=== PATIENT | male | born 1955 | race Caucasian/White ===

== ENCOUNTER → 2017-05-08 | Outpatient (CLI) | payer MEDICARE ==
[2017-05-08 09:08] LABS: ALT 30 U/L (21-72); Cholesterol 157 mg/dL (<200); HDL Cholesterol 36 mg/dL (40-60); Triglycerides 103 mg/dL (<150)
== END | disposition home or self-care (01) ==
LOC: LABWHC1 08:08
PROVIDERS: ATTEND Internal Medicine
DX: E78.4 Other hyperlipidemia (principal); R74.0 Nonspecific elevation of levels of transaminase and lactic acid dehydrogenase [LDH]
CPT/HCPCS: 36415; 80061; 84460

== ENCOUNTER → 2017-08-16 | Outpatient (CLI) | payer MEDICARE ==
[2017-08-16 10:39] LABS: Non-African American GFR(MDRD) >60 (>60 ml/min/1.73 sqM)
== END | disposition home or self-care (01) ==
LOC: LABWHC1 09:07
PROVIDERS: ATTEND Psychiatry & Neurology Neurology
DX: Z01.812 Encounter for preprocedural laboratory examination (principal); R41.82 Altered mental status, unspecified
CPT/HCPCS: 36415; 82565

== ENCOUNTER → 2017-08-19 | Outpatient (CLI) | payer MEDICARE ==
--- NOTE | 2017-08-19 22:23 | MR ---
EXAMINATION TYPE: MR brain wo/w con DATE OF EXAM: 08/19/2017 COMPARISON: MRI brain March 13, 2012 HISTORY: Memory loss, CVA TECHNIQUE: Multiplanar, multisequence images of the brain and brainstem is performed without and with IV contras t, utilizing 9 mL intravenous Gadavist . FINDINGS: Diffusion weighted images demonstrate no evidence of a recent infarct or other diffusion ab normality. There is no worrisome extra-axial fluid collection. The ventricular system and cisternal spaces are normal in size and appearance. The brain volume is age appropriate. There are few tiny s cattered foci of T2 hyperintensity seen throughout the white matter bilaterally, for reference for pu nctate lesions are seen on axial image 19 measuring 3 mm or smaller in size. Midline structures demonstrate normal morphology. The craniocervical junction appears within normal limits. Post contrast images demonstrate no abnormal enhancement. The dural venous sinuses appear pa tent. The visualized sinuses are clear and the globes are intact. IMPRESSION: No evidence of a recent infarct. Minimal nonspecific white matter changes otherwise unrem arkable study.
== END | disposition home or self-care (01) ==
LOC: RADMRIMAIN 15:46
PROVIDERS: ATTEND Psychiatry & Neurology Neurology
DX: R90.82 White matter disease, unspecified (principal); I63.9 Cerebral infarction, unspecified; G45.9 Transient cerebral ischemic attack, unspecified; C80.1 Malignant (primary) neoplasm, unspecified
CPT/HCPCS: 70553; A9581

== ENCOUNTER → 2017-11-06 | Outpatient (CLI) | payer MEDICARE | END | disposition home or self-care (01) | LOC: LABWHC1 07:37 | PROVIDERS: ATTEND Psychiatry & Neurology Neurology | DX: E78.5 Hyperlipidemia, unspecified (principal); M79.1 Myalgia; Z13.220 Encounter for screening for lipoid disorders; Z12.5 Encounter for screening for malignant neoplasm of prostate | CPT/HCPCS: 80061; 82550; 36415; G0103 ==

== ENCOUNTER → 2018-11-05 | Outpatient (CLI) | payer MEDICARE ==
[2018-11-05 08:57] LABS: HCT 50.4 % (39.0-53.0); HGB 16.5 gm/dL (13.0-17.5); MCH 30.4 pg (25.0-35.0); MCHC 32.8 g/dL (31.0-37.0); MCV 92.7 fL (80.0-100.0); Mean Platelet Volume 6.6; Platelet Count 232 k/uL (150-450); RBC 5.44 m/uL (4.30-5.90); RDW 13.3 % (11.5-15.5); WBC 6.3 k/uL (3.8-10.6)
[2018-11-05 16:35] LABS: Albumin 4.2 g/dL (3.80-4.90); Anion Gap 6.4 mmol/L (4.00-12.00); Carbon Dioxide 29.6 mmol/L (21.6-31.8); Globulin 2.1 g/dL (2.1-3.7); Total Bilirubin 0.5 mg/dL (0.2-1.2); Total Protein 6.3 g/dL (6.2-8.2)
== END | disposition home or self-care (01) ==
LOC: LABWHC1 07:51
PROVIDERS: ATTEND Psychiatry & Neurology Neurology
DX: N40.0 Benign prostatic hyperplasia without lower urinary tract symptoms (principal); E78.41 Elevated Lipoprotein(a); G62.9 Polyneuropathy, unspecified; E87.8 Other disorders of electrolyte and fluid balance, not elsewhere classified; R53.83 Other fatigue; M60.9 Myositis, unspecified
CPT/HCPCS: 36415; 80053; 80061; 82550; 84153; 85027

== ENCOUNTER 2019-10-21 09:14 | Day surgery (SDC) | payer MEDICARE ==
[2019-09-21 15:44] VITALS: BMI 29.3
[~2019-10-21 09:14] MED LIST: LACTATED RINGERS 1,000 ML IV SCH
[2019-10-21] MEDS ORDERED: LIDOCAINE 1% 20 ML VIAL (10MG/ML) FOR IV START INTRADERMA ONE (09:45)
[2019-10-21 09:49] VITALS: TEMP 97.6
[2019-10-21] MEDS ORDERED: PROPOFOL 10 MG/ML 20 ML VIAL IV ONE (09:53)
[2019-10-21] MEDS ORDERED: LIDOCAINE 1% INJ 10MG/ML (20 ML MDV) ONE (09:53)
--- NOTE | 2019-10-21 10:07 | P.PCN ---
Date of Procedure: 10/21/19 Procedure(s) Performed: BRIEF HISTORY: Patient is a 64-year-old, pleasant, white male, scheduled for an upper endoscopy for evaluation of intermittent dysphagia to solids for the last 10 years duration. Symptoms happen once a month or so and usually resolves. He denies any heartburn. He reports no odynophagia. He is scheduled for an upper endoscopy with possible dilation. PROCEDURE PERFORMED: Esophagogastroduodenoscopy with biopsy and dilation. PREOPERATIVE DIAGNOSIS: Intermittent dysphagia to solids. IV sedation per anesthesia. PROCEDURE: After informed consent was obtained, the patient was brought into the endoscopy unit. IV sedation was administered by Anesthesia under continuous monitoring. Initially the Olympus GIF-140 video endoscope was inserted into the mouth. Esophagus intubated without any difficulty. It was gradually advanced into the stomach and duodenum and carefully examined. The bulb and the second part of the duodenum appeared normal. The scope at this time was withdrawn to the stomach, adequately insufflated with air, and upon careful examination, mucosa of the antrum had mild gastritis. Also there was an area in the proximal antrum of the stomach which appeared somewhat scarred just over a previously healed antral ulcer. Biopsies were done from this area. The rest of the, body, cardia and the fundus appeared normal. The scope was then withdrawn into the esophagus. The GE junction was located at 43 cm from the incisors. There was a distal esophageal stricture identified at this time this was dilated using a 15 mm TTS balloon for total of 30 seconds. Following this there was brisk oozing identified at the site of dilation from mucosal tear and hence further dilation was not performed. The rest of the esophagus appeared normal. There were no erosions or ulcerations seen and the patient tolerated the procedure well. IMPRESSION: 1. Distal esophageal stricture status post balloon dilation using 15 mm TTS balloon as described above. 2. Scarring noted in the proximal antrum of the stomach suggestive of previously healed ulcer status post multiple biopsies. 3. Mild antral gastritis RECOMMENDATIONS: The findings of this examination were discussed with the patient as well as his family. He was advised to remain on a clear liquid diet for lunch. He will be started on Pepcid 20 mg twice daily for possible GERD causing esophageal stricture. He'll be seen in office in 3-4 months.
[2019-10-21] MEDS ORDERED: IV FLUID CONTINUATION 1,000 ML IV ONE (10:13)
[2019-10-21 10:29] VITALS: BP 125/77; PULSE 69; RESP 18
== END 2019-10-21 11:03 | disposition home or self-care (01) ==
LOC: ORWHC2ENDO 09:14
PROVIDERS: ATTEND Internal Medicine Gastroenterology
DX: K29.50 Unspecified chronic gastritis without bleeding (principal); K22.2 Esophageal obstruction; K31.89 Other diseases of stomach and duodenum; I10 Essential (primary) hypertension; E78.5 Hyperlipidemia, unspecified; Z88.2 Allergy status to sulfonamides; Z79.82 Long term (current) use of aspirin; Z79.899 Other long term (current) drug therapy; Z79.1 Long term (current) use of non-steroidal anti-inflammatories (NSAID); Z98.1 Arthrodesis status; Z98.890 Other specified postprocedural states; Z90.49 Acquired absence of other specified parts of digestive tract
CPT/HCPCS: 88305; 43239; 43249; J2001; J2704; C1726

== ENCOUNTER → 2020-06-30 | Outpatient (CLI) | payer MEDICARE ==
[2020-06-30 09:48] LABS: HCT 51.3 % (39.0-53.0); HGB 17.2 gm/dL (13.0-17.5); MCH 31.8 pg (25.0-35.0); MCHC 33.6 g/dL (31.0-37.0); MCV 94.8 fL (80.0-100.0); Mean Platelet Volume 7.3; Platelet Count 199 k/uL (150-450); RBC 5.41 m/uL (4.30-5.90); RDW 13.3 % (11.5-15.5); WBC 5.6 k/uL (3.8-10.6)
[2020-06-30 09:56] LABS: Appearance,Urine Clear (Clear); Bilirubin,Urine Negative (Negative); Blood,Urine Negative (Negative); Color,Urine Yellow; Glucose,Urine (UA) Negative (Negative); Hyaline Casts,Urine 1 /lpf (0-2); Ketones,Urine Negative (Negative); Leukocyte Esterase,Urine Trace (Negative); Mucus,Urine Occasional /hpf; Nitrite,Urine Negative (Negative); Protein,Urine Trace (Negative); RBC,Urine 1 /hpf (0-5); Specific Gravity,Urine 1.027 (1.001-1.035); WBC,Urine 1 /hpf (0-5)
[2020-06-30 16:46] LABS: African American GFR (CKD) 103.5 (60.0-200.0); Albumin 3.9 g/dL (3.80-4.90); Albumin/Globulin Ratio 1.7 (1.60-3.17); Anion Gap 7.7 mmol/L (4.00-12.00); Carbon Dioxide 27.3 mmol/L (21.6-31.8); Chol/HDL Ratio 5.31; Globulin 2.3 g/dL (1.6-3.3); Non-African American GFR(CKD) 89.3 (60.0-200.0); Potassium 3.6 mmol/L (3.5-5.5); Total Bilirubin 0.6 mg/dL (0.3-1.2); Total Protein 6.2 g/dL (6.2-8.2)
== END | disposition home or self-care (01) ==
LOC: LABWHC1 08:48
PROVIDERS: ATTEND Family Medicine
DX: Z00.00 Encounter for general adult medical examination without abnormal findings (principal); Z12.5 Encounter for screening for malignant neoplasm of prostate; E78.5 Hyperlipidemia, unspecified; Z79.899 Other long term (current) drug therapy; R53.83 Other fatigue; I10 Essential (primary) hypertension
CPT/HCPCS: 36415; 80053; 80061; 81001; 82550; 83735; 84443; 85027

== ENCOUNTER → 2020-08-24 | Outpatient (CLI) | payer MEDICARE, OTHER ==
--- NOTE | 2020-08-24 13:09 | CONS ---
CONSULTATION DATE OF SERVICE: 08/24/2020 HISTORY OF PRESENT ILLNESS: A 65-year-old gentleman who has been evaluated in the Sleep Center for possible obstructive sleep apnea-hypopnea syndrome. HISTORY OF PRESENT ILLNESS/SLEEP WAKE EVALUATION: Patient usual sleep schedule from 11 p.m. to 6 to 7 am, usually no problems with falling asleep, although he has TV set in bedroom. He sleeps on the back and side position. According to his , he snores and has episodes of stopped breathing during sleep. He wakes up from sleep with a dry mouth, nocturia 2 times. During the day, he has difficulties paying attention and problems with concentration. [place] Sleepiness Scale is 5. PAST MEDICAL HISTORY: Positive for hypertension, hyperlipidemia, neck and shoulder problems. PAST SURGICAL HISTORY: Cervical fusion, shoulder surgery, hernia repair, appendectomy. MEDICATIONS: Duloxetine 60 mg once a day, hydrochlorothiazide 25 mg once a day, baby aspirin, atorvastatin 40 mg once a day, Naproxen 500 mg on p.r.n. basis, Baclofen 20 mg once a day. SOCIAL HISTORY: Positive for smoking for about 30 pack years, quit in 2010, alcohol consumption rarely. FAMILY HISTORY: Positive for heart problems and hypertension by his father. REVIEW OF SYSTEMS: Multiple awakenings from sleep, episodes of sleepiness during the day. May take naps at 2 pm. No history of hypnagogic hallucinations, sleep paralysis or cataplexy. PHYSICAL EXAM: A gentleman without distress, BP 143/80, HR 68, RR 16, height 5, 8, weight 197, BMI 29.9, temperature 98.3, oxygen saturation at room air 97%. OROPHARYNX: Extremely low position of soft palate. Mallampati 4. ABDOMEN: lightly obese. NECK: Supple, no JVD. Thyroid is not palpable. LUNGS: Clear to percussion and to auscultation. Good air exchange. No wheezing or rhonchi. HEART: S1, S2 regular. No murmurs, gallops, or rubs. EXTREMITIES: No clubbing or cyanosis. RN CCU: Awake, alert, and oriented X3. Cranial nerves 2 to 7 intact. There is no fasciculation or atrophy. noted. No focal deficits observed. IMPRESSION: 1. Snoring, witnessed episodes of stopped breathing during the sleep, extremely low position of soft palate, obstructive sleep apnea-hypopnea syndrome. 2. Hypertension. 3. Hyperlipidemia. 4. History of neck problems, status post cervical fusion. 5. Status post shoulder surgery. 6. Status post hernia repair. 7. Status post appendectomy. PLAN: 1. Polysomnography for evaluation of patient's breathing during sleep. 2. CPAP/BiPAP titration if sleep study confirms obstructive sleep apnea-hypopnea syndrome. 3. Preferable position during sleep on the side. 4. No driving if patient feels any sleepiness. 5. I will see patient for follow up visit to explain results of testing and following plan. Thank you very much for allowing me to participate in the management of your patient. Sincerely, Castro Norris MD, PhD, FAASM Diplomat of [employer] [employer] [employer] Principal Librarian of [facility] MMODL / CAROLINAN: [id number] /
== END | disposition home or self-care (01) ==
LOC: SLEEP 11:27
PROVIDERS: ATTEND Internal Medicine
DX: G47.33 Obstructive sleep apnea (adult) (pediatric) (principal); I10 Essential (primary) hypertension; E78.5 Hyperlipidemia, unspecified; Z98.1 Arthrodesis status; Z90.49 Acquired absence of other specified parts of digestive tract; Z79.899 Other long term (current) drug therapy; Z79.1 Long term (current) use of non-steroidal anti-inflammatories (NSAID); Z79.82 Long term (current) use of aspirin
CPT/HCPCS: 99211

== ENCOUNTER → 2021-02-07 | Outpatient (CLI) | payer MEDICARE, OTHER ==
--- NOTE | 2021-02-07 22:31 | SFUN ---
SLEEP CENTER FOLLOW UP NOTE DATE OF SERVICE: 02/07/2021 This 65-year-old gentleman has been followed in Sleep Center for treatment of obstructive sleep apnea-hypopnea syndrome. Recently the patient had a polysomnogram which showed moderate, close to severe obstructive sleep apnea-hypopnea syndrome. Then the patient had CPAP titration and received a CPAP unit. Today is his first visit since he started to use CPAP equipment. His thinks that he sleeps better with the CPAP, but he does have some problems with the mask. It is a full-face mask and sometimes he does not feel comfortable with the mask during the night and takes it off. [place] Sleepiness Scale today is 7. I checked his CPAP unit. Range of the pressure is 5-12, usage 29/30 nights, which is good compliance, but only 6/30 nights for more than 4 hours. Average usage 2.9 hours per night. Leak is 20 L/minute, which is borderline. Apnea-hypopnea index 10.1, which is slightly increased. MEDICATIONS: 1. Duloxetine 60 mg once a day. 2. Hydrochlorothiazide 25 mg once a day. 3. Baby aspirin. 4. Atorvastatin 40 mg once a day. 5. Naproxen 500 mg on a p.r.n. basis. 6. Baclofen 20 mg once a day. PHYSICAL EXAMINATION: GENERAL: A pleasant patient in no distress. VITAL SIGNS: BP 148/78, HR 82, RR 15, oxygen saturation at room air 95%. Weight 201 pounds. Temperature 97.9. HEENT: PERRLA, EOMI. Evaluation of oropharynx showed tongue protrudes midline. Extremely low position of soft palate. Mallampati IV. NECK: Supple. No JVD. Thyroid is not palpable. LUNGS: Clear to percussion and to auscultation. Good air exchange. No wheezing or rhonchi. HEART: S1, S2 regular. No murmurs, gallops or rubs. ABDOMEN: Slightly obese. EXTREMITIES: No clubbing or cyanosis. TOOLROOM MACHINIST: Awake, alert, and oriented X3. Cranial nerves 2 to 7 intact. There is no fasciculation or atrophy. noted. No focal deficits observed. IMPRESSION: 1. Moderate, close to severe obstructive sleep apnea-hypopnea syndrome; apnea-hypopnea index 27.1. The patient is using CPAP equipment every night; some nights not for the whole night, benefitting from treatment. 2. Obesity. 3. Hypertension. 4. Hyperlipidemia. 5. History of neck problems. 6. Status post neck fusion. 7. Status post shoulder surgery. 8. Status post hernia repair. PLAN: 1. We will treat the patient with a different style of full-face mask, possibly DreamWear which goes under the nose, and consequently there will be no leak to the eye area. 2. Patient will continue to use PAP equipment every night for the whole night. 3. Sleep hygiene with regular time in bed for at least 7-1/2 to 8 hours. 4. Precautions related to driving. No driving if feeling sleepiness. 5. I will maintain all necessary prescription for PAP supplies including mask, tube, filters. 6. Watching weight. Thank you very much for allowing me to participate in the management of your patient. Sincerely, Castro Norris MD, PhD, FAASM Diplomat of [employer] [employer] [employer] Churn Operator [facility] MMODL / IJN: [id number] /
== END ==
LOC: SLEEP 16:03
PROVIDERS: ATTEND Internal Medicine
DX: G47.33 Obstructive sleep apnea (adult) (pediatric) (principal); E66.9 Obesity, unspecified; I10 Essential (primary) hypertension; E78.5 Hyperlipidemia, unspecified; Z99.89 Dependence on other enabling machines and devices; Z98.1 Arthrodesis status; Z98.890 Other specified postprocedural states

== ENCOUNTER → 2021-04-26 | Outpatient (CLI) | payer MEDICARE, OTHER ==
--- NOTE | 2021-04-26 09:30 | CTL ---
EXAMINATION TYPE: CT Low Dose Lung DATE OF EXAM ORDERED: 04/26/2021 HISTORY: Long-term tobacco use. Lung cancer screening CT DLP: 75.[address] CTDI: 2.29 mGy Automated exposure control for dose reduction was used. SCREENING VISIT: Initial study COMPARISON: None TECHNIQUE: Low dose computed tomography scan was performed through the chest at 1 mm thick sections a nd reconstructed images in the coronal plane at [address] DIAGNOSTIC QUALITY: Limited, but interpretable Due to body habitus. FINDINGS: LUNG NODULES: Present, detailed below: Scattered calcified nodules are benign granulomas all measuring under 5 mm in size. No greater than 5 mm noncalcified pulmonary nodules. LUNGS: COPD: Severity: Mild Fibrosis: Severity: None. Lymph nodes: None. Other findings: None RIGHT PLEURAL SPACE: Effusion: None Calcification: None Thickening: None Pneumothorax: None LEFT PLEURAL SPACE: Effusion: None Calcification: None Thickening: None Pneumothorax: None HEART: Heart Size: Normal Coronary calcification: Moderate to severe three-vessel Pericardial effusion: None OTHER FINDINGS: Upper abdomen: None. Bony thorax: Mild multilevel spurring. Anterior fusion plate in the cervical spine noted on localizer . Surgical change right shoulder involving scapula partially visualized on localizer. Supraclavicular region: None. Other: None. IMPRESSION: No concerning greater than 5 mm noncalcified pulmonary nodules. CT LUNG RAD AND CT CHEST RECOMMENDATION: Lung-Rad 2 Benign Appearance or Behavior: Continue annual sc reening with LDCT in 12 months. S Modifier (other clinically significant findings): S Moderate to severe three-vessel coronary artery calcification should be correlated with additional ca rdiac risk factors.
== END | disposition home or self-care (01) ==
LOC: RADCTMAIN 08:29
PROVIDERS: ATTEND Family Medicine
DX: Z12.2 Encounter for screening for malignant neoplasm of respiratory organs (principal); R91.8 Other nonspecific abnormal finding of lung field; I25.10 Atherosclerotic heart disease of native coronary artery without angina pectoris; Z87.891 Personal history of nicotine dependence
CPT/HCPCS: 71271

== ENCOUNTER → 2021-05-18 | Outpatient (CLI) | payer MEDICARE ==
--- NOTE | 2021-05-18 13:31 | US ---
EXAMINATION TYPE: US duplex aorta DATE OF EXAM: 05/18/2021 COMPARISON: NONE CLINICAL HISTORY: Z13.6 AAA screening. Smoker with no abdomen symptoms EXAM MEASUREMENTS: Abdominal Aorta: Proximal: 2.3cm Mid: 2.0 x 2.4cm Distal: 1.3 x 1.6cm Bifurcation: not seen not seen Aortic Bifurcation gassed out IMPRESSION: 1. Aortic bifurcation is not visualized due to overlying bowel gas. No definite evidence of abdominal aortic aneurysm at the visualized portions.
== END | disposition home or self-care (01) ==
LOC: RADUSWWP 09:16
PROVIDERS: ATTEND Family Medicine
DX: Z13.6 Encounter for screening for cardiovascular disorders (principal); F17.200 Nicotine dependence, unspecified, uncomplicated
CPT/HCPCS: 93979

== ENCOUNTER → 2021-06-08 | Outpatient (CLI) | payer MEDICARE | END | disposition home or self-care (01) | LOC: LABWHC1 12:31 | PROVIDERS: ATTEND Family Medicine | DX: Z01.812 Encounter for preprocedural laboratory examination (principal) | CPT/HCPCS: 87070 ==

== ENCOUNTER → 2021-06-18 | Outpatient (CLI) | payer MEDICARE | END | disposition home or self-care (01) | LOC: LABPAT 15:54 | PROVIDERS: ATTEND Orthopaedic Surgery | DX: Z01.812 Encounter for preprocedural laboratory examination (principal); M16.11 Unilateral primary osteoarthritis, right hip | CPT/HCPCS: 85730 ==

== ENCOUNTER → 2021-06-20 | Outpatient (CLI) | payer MEDICARE ==
[2021-06-20 14:00] LABS: HGB 17.7 gm/dL (13.0-17.5); MCH 32.2 pg (25.0-35.0); MCHC 34.8 g/dL (31.0-37.0); MCV 92.6 fL (80.0-100.0); Mean Platelet Volume 7.1; Platelet Count 268 k/uL (150-450); RBC 5.51 m/uL (4.30-5.90); RDW 12.9 % (11.5-15.5); WBC 7.5 k/uL (3.8-10.6)
[2021-06-20 14:18] LABS: African American GFR (CKD) >90 (>60 ml/min/1.73 sqM); Anion Gap 11 mmol/L; Blood Urea Nitrogen 19 mg/dL (9-20); Carbon Dioxide 28 mmol/L (22-30); Chloride 98 mmol/L (98-107); Non-African American GFR(CKD) 86 (>60 ml/min/1.73 sqM); Potassium 3.9 mmol/L (3.5-5.1); Sodium 137 mmol/L (137-145)
== END | disposition home or self-care (01) ==
LOC: LABPAT 12:39
PROVIDERS: ATTEND Internal Medicine Interventional Cardiology
DX: Z01.812 Encounter for preprocedural laboratory examination (principal); R94.39 Abnormal result of other cardiovascular function study
CPT/HCPCS: 36415; 80051; 82565; 84520; 85027

== ENCOUNTER 2021-06-21 05:48 | Day surgery (SDC) | payer MEDICARE ==
[2021-06-20 10:31] VITALS: BMI 29.7
[2021-06-21] MEDS ORDERED: NITROGLYCERIN SL TABS 0.4 MG TAB SUBLINGUAL PRN (05:57)
[2021-06-21] MEDS ORDERED: ALPRAZolam 0.25 MG TAB PO PRN (05:57)
[2021-06-21] MEDS ORDERED: ALPRAZolam 0.5 MG TAB PO PRN (05:57)
[2021-06-21] MEDS ORDERED: SODIUM CHLORIDE 0.9% 1,000 ML in EMPTY BAG 1 BAG IV ONE (05:57)
[2021-06-21 06:32] VITALS: RESP 18; TEMP 98.3
[2021-06-21] MEDS ORDERED: ASPIRIN 325 MG TAB PO ONE (07:00)
[2021-06-21] MEDS ORDERED: ATORVASTATIN 80 MG TAB PO ONE (07:00)
[2021-06-21] MEDS ORDERED: HEPARIN SODIUM,PORCINE 2,500 UNIT in SODIUM CHLORIDE 0.9% 250 ML IRRIGATION PRN (07:00)
[2021-06-21] MEDS ORDERED: HEPARIN SODIUM,PORCINE 10,000 UNIT in SODIUM CHLORIDE 0.9% 1,000 ML IRRIGATION PRN (07:00)
[2021-06-21] MEDS ORDERED: VERAPAMIL 2.5 MG/ML 2 ML AMP ONE (07:06)
[2021-06-21] MEDS ORDERED: LIDOCAINE 1% INJ 10MG/ML (20 ML MDV) ONE (07:06)
[2021-06-21] MEDS ORDERED: HEPARIN SODIUM 1,000 UN/ML (10ML VL) ONE (07:14)
[2021-06-21] MEDS ORDERED: MIDAZOLAM 2 MG/2 ML VIAL IV ONE ×2 (07:21)
[2021-06-21] MEDS ORDERED: LIDOCAINE 1% INJ 10MG/ML (20 ML MDV) SQ ONE (07:22)
[2021-06-21] MEDS ORDERED: HEPARIN SODIUM 1,000 UN/ML (10ML VL) IV ONE (07:25)
[2021-06-21] MEDS ORDERED: VERAPAMIL SYRINGE (5 MG/10 ML) INTRAARTER ONE (07:25)
[2021-06-21] MEDS ORDERED: IOPAMIDOL-370 100ML BTL INJ ONE (07:39)
--- NOTE | 2021-06-21 09:14 | CC ---
CARDIAC CATHETERIZATION REPORT DATE OF SERVICE: 06/21/2021 PROCEDURE: Left heart catheterization and coronary angiography. PERFORMED BY: Dr. Sally Falcon. Moderate conscious sedation time was 19 minutes. Patient was administered Versed. Oxygen saturation, hemodynamics and EKG were monitored closely. CLINICAL INFORMATION: Mr. Nadeem Mckee is a 65-year-old gentleman with a history of hypertension, hyperlipidemia, and a positive stress test with inferolateral reversible defect. He was going for elective hip operation and he also had calcified coronary arteries. He was advised cardiac cath in view of symptoms risk factors and a positive stress test. PROCEDURE NOTE: Under local anesthesia and strict aseptic precautions, a 6-Vietnamese introducer was placed in the right radial artery. Using a JL3.5 and JR4 catheters, I performed coronary angiography and the same right catheter was used to check LV pressure but LV gram was not performed. CARDIAC CATHETERIZATION FINDINGS: Left ventricular end-diastolic pressure was about 7 mmHg without any gradient across aortic valve. CORONARY ANGIOGRAPHY FINDINGS: RIGHT CORONARY ARTERY: Technically a dominant vessel, moderate to heavy calcification, has a 35% mid lesion. Distally bifurcates into PDA and PLV, both of which supply a sizable amount of myocardium. No significant disease. The RCA therefore is dominant, has no significant disease. There is moderate calcification with lesions of up to 35%. LEFT MAIN CORONARY ARTERY: Short patent vessel that bifurcates into LAD and circumflex. The left main itself is free of significant disease, has mild to moderate calcification. LEFT ANTERIOR DESCENDING CORONARY ARTERY: Good caliber vessel, extends along the anterior wall, gives off septal and diagonal branches. There are 2 diagonal branches, 1 proximally, 1 in the midportion. Before the second diagonal branch, there is a 40% stenosis in the LAD with good flow. Beyond that, caliber improves. It runs all the way to the apex supplying the anteroapical portion of left ventricle. The LAD therefore has a 40% mid lesion just before the origin of the second diagonal branch. Moderate calcification, but no critical stenosis. LEFT POSTERIOR CIRCUMFLEX CORONARY ARTERY: Technically a nondominant vessel, gives off a high first obtuse marginal that is free of significant disease and small in caliber. The second obtuse marginal is larger in caliber, but totally occluded, seen as a stump with late filling distally. The circumflex then continues in the AV groove and gives off a distal posterolateral branch which has mild diffuse disease. The circumflex marginal, the 2nd OM, which is fairly large, is totally occluded and fills by some left- to-left collaterals. This is the culprit area of ischemia on the stress test. Left ventriculogram was not performed. FINAL IMPRESSION: This patient has a significant single-vessel disease, significant calcification of all 3 vessels, normal filling pressures. No gradient. Although I did not perform an echocardiogram, ejection fraction by echo is 55% without any significant valvular disease. He has a right dominant system, total occlusion of circumflex marginal, moderate calcification all 3 vessels with mid LAD, 40%, mid RCA, 35%. RECOMMENDATIONS: I am recommending that we will pursue aggressive medical therapy with risk factor modification. I will increase beta ministerio, metoprolol tartrate 25 mg b.i.d., aspirin 81 mg daily, Lipitor 80 mg daily and decrease hydrochlorothiazide to 12.5 mg daily. The patient can go ahead with his right hip arthroplasty scheduled for June [address] Bryce Mcallister. Risk is moderate to high, but no contraindication. I am recommending cautious fluid administration and optimal BP control perioperatively and to resume all his medications including beta blockers after the surgery. Details were discussed with the patient and his and I also spoke to Dr. Mcallister. This note should serve as a clearance for his noncardiac surgery. MMODL / IJN: [id number] /
[2021-06-21 12:44] VITALS: BP 127/64; PULSE 74
== END 2021-06-21 12:35 | disposition home or self-care (01) ==
LOC: CATHCVL 05:48
PROVIDERS: ATTEND Internal Medicine Interventional Cardiology
DX: I25.10 Atherosclerotic heart disease of native coronary artery without angina pectoris (principal); I25.82 Chronic total occlusion of coronary artery; I10 Essential (primary) hypertension; E78.5 Hyperlipidemia, unspecified; Z79.82 Long term (current) use of aspirin
CPT/HCPCS: 93458; C1894; J2250; J2001; J1644; Q9967

== ENCOUNTER 2021-06-26 09:56 | Day surgery (SDC) | payer MEDICARE ==
[2021-06-21 17:02] VITALS: BMI 29.5
[~2021-06-26 09:56] MED LIST changes: +ACETAMINOPHEN TAB 500 MG TAB PO PRN; +DEXAMETHASONE SOD PHOSPHATE 4 MG/ML 1 ML VIAL IV ONE; +GABAPENTIN 300 MG CAP PO PRN; +HYDROmorphone 0.5 MG/0.5 ML SYRINGE IVP PRN; +LIDOCAINE 1% (10MG/ML) FOR IV START INTRADERMA PRN; +MELOXICAM 7.5 MG TAB PO PRN; +ONDANSETRON 4 MG/2 ML VIAL IVP PRN; +TRANEXAMIC ACID 1,000 MG in SODIUM CHLORIDE 0.9% 100 ML IVPB PRN
[2021-06-26] MEDS: LACTATED RINGERS 1,000 ML IV SCH ×3 (10:51→14:52)
[2021-06-26] MEDS ORDERED: ceFAZolin 1,000 MG in SODIUM CHLORIDE 0.9% 1,000 ML IRRIGATION ONE (11:54)
[2021-06-26] MEDS: ROPIVACAINE/EPI/CLONIDINE/KET 50 ML SYRINGE MISCELLANE PRN ×2 (12:18→12:56)
--- NOTE | 2021-06-26 13:04 | P.OP ---
Date of Procedure: 06/26/21 Preoperative Diagnosis: Severe osteoarthritis right hip Postoperative Diagnosis: Severe osteoarthritis right hip Procedure(s) Performed: Right total hip arthroplasty with a direct anterior approach Implants: [employer] Polarstem standard size 4 [employer] R3, 3 hole hemispherical acetabular shell, 52 mm [employer] Reflection 6.5 mm cancellus screw, 20 mm, 25 mm [employer] R3, XLPE 20 acetabular liner [employer] Oxinium femoral head 36 m, +4 All components were press-fit. The articulation is Oxinium on polyethylene. Anesthesia: GETA Surgeon: Bryce Mcallister Director Of Catering Sales #1: Marjorie Emerson Estimated Blood Loss (ml): 100 Pathology: other (Femoral head) Condition: stable Disposition: PACU Indications for Procedure: After failure of conservative treatment we discussed the surgical and nonsurg ical treatment options at length. Patient wishes to proceed with a total hip arthroplasty with a direct anterior approach. Complications specific to this procedure were discussed at length, including but not limited to infection, leg length discrepancy, dislocation, nerve injury, and fracture. Covid-19 was also discussed at length with the patient, and they are aware of the current policies and procedures. The patient was given the option of delaying surgery, but they elect to proceed knowing these risks. Patient is aware of all these complications and informed consent was obtained Operative Findings: The operative findings are consistent with severe osteoarthritis of the right hip Description of Procedure: Patient was seen and evaluated in the preoperative area and the consent was reviewed. The operative site was marked with a skin marker. The patient was then brought to the operating room and given preoperative antibiotics intravenously. 1 g of Tranexamic acid was also given intravenously. A general anesthetic was administered by the anesthesia department. The patient was then placed on the [place] table with the bony prominences well-padded. The hip area was then prepped with a ChloraPrep solution and draped in the usual sterile fashion. A universal timeout was then performed, which confirmed the patient's name, surgical site, ALLERGIES, and procedure being performed on the consent. Next the incision site was located at 1 cm distal to the anterior superior iliac spine along the flexion crease of the hip. The skin and subcutaneous tissues were sharply incised. Incision was carefully dissected down to the fascia overlying the tensor fascia elvis muscle. This fascia was then incised in line with the incision. Care was taken to stay laterally in order to avoid injuring the lateral femoral cutaneous nerve. Next, using blunt finger dissection, the tensor fascia elvis muscle was dissected off its investing fascia. The muscle was then carefully retracted laterally with a cobra retractor over the lateral neck of the femur. Next, the circumflex vessels were identified and cauterized using the AquaMantis device. The anterior hip capsule was then exposed. The capsule was then opened and an inverted T fashion. Cobra retractors were then placed intracapsularly. The retractors were maintained intracapsular throughout the procedure. The proximal femur was then visualized. A small amount of traction was placed on the leg. The femoral neck was then osteotomized appropriate level above the lesser trochanter. A small wedge of bone was then removed from the remaining femoral head. Next, using a corkscrew the femoral head was removed from the acetabulum. On gross visual inspection, the femoral head had complete loss of articular cartilage and multiple periarticular osteophytes. The femoral head was then measured. Attention was then turned to the acetabulum. The acetabulum was exposed and any remaining labrum was excised. Sequential reaming of the acetabulum was performed using fluoroscopic guidance until there was a good bed of bleeding cancellus bone. When the appropriate size was reached, a trial was then placed. The position and fit of the trial was checked with fluoroscopy. The trial was then removed. Then, using fluoroscopic guidance, the final implant was impacted at 20 of anteversion and 40 of abduction, and fully seated in the acetabulum. 2 screws were then placed in the acetabulum. Again fluoroscopy was used to check position of the screws. Next, the liner was then impacted, with a 20 elevated liner located in the anterior superior quadrant. Component locking was confirmed. Attention was then directed to the femur. With the aid of the [place] table, the femur was externally rotated to approximately 130, extended, and adducted under the opposite leg. A side hook was then placed under the proximal femur, and the side hook elevator was used to elevate the proximal femur while releasing the capsule. Retractors were then placed. A capsular release was performed, as well as a release of the conjoined tendon, which afforded excellent visua lization of the proximal femur. Next, a box osteotome was used to lateralize the proximal femur. A shoe handler was then used to locate the femoral canal. Sequential broaching was then performed with appropriate size which afforded excellent fixation in the proximal femur. A trial was then placed with appropriate head and neck, and the hip was gently reduced with the aid of the [place] table. Fluoroscopy was then used to check position of the components, as well as to ensure equal leg lengths. The hip was then gently dislocated and the trials were then removed. Final implants were then impacted and the hip was again reduced. Final fluoroscopic x-rays confirmed that the components were in anatomic position, as well as equal leg lengths. The hip was also taken through range of motion, and found to be stable. The hip was then copiously irrigated with antibiotic solution with pulsatile lavage. The hip was then irrigated with Irrisept solution. The soft tissues were then injected with a ropivacaine solution, which consisted of 246.25 mg of ropivacaine, 0.5 mg of epinephrine, 30 mg of Toradol, 80 g of clonidine, and 48.45 mL of sterile water, for a total of 100 mL of fluid injected. A second dose of 1 g of Tranexamic acid was also given intravenously. Any blood collected by Cell Saver was then returned to the patient at this time. The fascia was then closed with 2-0 strata fix suture. The subcutaneous tissue was closed with 3-0 Vicryl. The subcuticular tissue was closed with 3-0 strata fix suture. The skin was then closed with Exofin skin glue. After the glue and dried, and Optifoam silver impregnated dressing was applied. The patient was then transferred to the recovery room in stable condition. The customer assistant GEMINI Moore was required due to the complexity of surgery, and the need for skilled surgical elastic knitter for positioning, draping, exposure, retraction, and closure of the wound.
[2021-06-26] MEDS ORDERED: HYDROmorphone 0.5 MG/0.5 ML SYRINGE IVP PRN ×2 (13:29)
[2021-06-26] MEDS ORDERED: NALOXONE 0.4 MG/ML 1 ML VIAL IV PRN (13:29)
[2021-06-26] MEDS ORDERED: HYDROmorphone 0.2 MG/1 ML SYRINGE IVP PRN (13:29)
[2021-06-26] MEDS ORDERED: SODIUM CHLORIDE 0.9% 1,000 ML IV SCH (13:30)
[2021-06-26] MEDS ORDERED: HYDROcodone/APAP 7.5-325MG 1 EACH TAB PO PRN ×2 (13:32)
[2021-06-26 13:35] VITALS: TEMP 97
[2021-06-26] MEDS ORDERED: ONDANSETRON 4 MG/2 ML VIAL IVP ONE ×2 (14:45→16:35)
[2021-06-26] MEDS ORDERED: LACTATED RINGERS 1,000 ML IV ONE ×2 (14:55)
--- NOTE | 2021-06-26 15:11 | XR ---
Limited right hip HISTORY: Status post right hip arthroplasty Single frontal view of the right hip Patient is status post right hip arthroplasty, there is anatomic alignment. There is lucency in the s oft tissues. IMPRESSION: Orthopedic follow-up.
[2021-06-26 16:19] VITALS: PULSE 85
[2021-06-26] MEDS ORDERED: ONDANSETRON 4 MG/2 ML VIAL ONE (16:35)
[2021-06-26 16:44] VITALS: BP 133/75; RESP 18
--- NOTE | 2021-06-26 17:26 | FL ---
Fluoroscopy and limited right hip HISTORY: Hip replacement 18 seconds fluoroscopy time supplied to the referring clinician. 2 intraoperative C-arm images docum ent the procedure. See dictated report from orthopedic surgery.
== END 2021-06-26 17:39 | disposition home or self-care (01) ==
LOC: OR 09:56
PROVIDERS: ATTEND Orthopaedic Surgery
DX: M16.11 Unilateral primary osteoarthritis, right hip (principal); I10 Essential (primary) hypertension; G47.33 Obstructive sleep apnea (adult) (pediatric); E78.5 Hyperlipidemia, unspecified; Z79.82 Long term (current) use of aspirin
CPT/HCPCS: 27130; 97162; 86891; 86900; 86901; 86850; 88300; 73501; 36415; C1776; J1100; J0690 ×2; J2405

== ENCOUNTER 2022-05-15 06:32 | Day surgery (SDC) | payer MEDICARE, OTHER ==
[2022-05-14 10:34] VITALS: BMI 31.3
[~2022-05-15 06:32] MED LIST changes: -ACETAMINOPHEN TAB 500 MG TAB PO PRN; -DEXAMETHASONE SOD PHOSPHATE 4 MG/ML 1 ML VIAL IV ONE; -GABAPENTIN 300 MG CAP PO PRN; -HYDROmorphone 0.5 MG/0.5 ML SYRINGE IVP PRN; -LACTATED RINGERS 1,000 ML IV SCH; -MELOXICAM 7.5 MG TAB PO PRN; -ONDANSETRON 4 MG/2 ML VIAL IVP PRN; -TRANEXAMIC ACID 1,000 MG in SODIUM CHLORIDE 0.9% 100 ML IVPB PRN
[2022-05-15 06:53] VITALS: TEMP 97
[2022-05-15] MEDS: LACTATED RINGERS 1,000 ML IV SCH ×2 (07:01→07:18)
[2022-05-15] MEDS ORDERED: LIDOCAINE 2% INJ 20 MG/ML (2 ML VIAL) ONE (07:20)
[2022-05-15] MEDS ORDERED: PROPOFOL 10 MG/ML 20 ML VIAL IV ONE (07:20)
--- NOTE | 2022-05-15 07:54 | P.PCN ---
Date of Procedure: 05/15/22 Procedure(s) Performed: Brief history: Patient is a pleasant 66-year-old white male scheduled for an elective upper endoscopy as well as colonoscopy as a part of evaluation of intermittent dysphagia to solids for the last 5 days duration. He scheduled for an upper endoscopy with possible dilation. Scheduled for colonoscopy as a part of screening for colorectal neoplasia Procedure performed: Esophagogastroduodenoscopy biopsy and dilation Colonoscopy Preoperative diagnosis: Intermittent dysphagia to solids Screening for colon cancer Anesthesia: MAC Procedure: After informed consent was obtained from the patient was brought into the endoscopy unit and IV sedation was administered by anesthesia under continuous monitoring. Initially upper endoscopy was done. The Olympus GF 160 video endoscope was inserted inserted into the mouth and esophagus intubated without any difficulty and was gradually advanced into the stomach and duodenum and carefully examined. The bulb and second part of the duodenum appeared normal. The scope was then withdrawn into the stomach adequately insufflated with air and upon careful examination the antrum mild gastritis and biopsies were done from this area. The body, cardia and fundus appeared normal. The scope was then withdrawn into the esophagus. The GE junction was located at 40 cm to the incisors. It appeared regular with no erythema erosions or ulcerations. There was distal esophageal stricture/Schatzki's ring noted at 38 and 40 cm from the incisors and this was dilated using 15 and 16-1/2 mm TTS balloon in a sequential fashion for 30 seconds. Rest of the esophagus appeared normal. Patient tolerated the procedure well. At this time the patient continued to remain sedation. Initial digital rectal examination was normal. Olympus CF 160 video colonoscope was then inserted into the rectum and gradually advanced to the cecum without any difficulty. Careful examination was performed as the scope was gradually being withdrawn. The prep was excellent. The cecum, ascending colon, transverse colon, descending colon, sigmoid colon and rectum appeared normal. Retroflexion was performed in the rectum and no lesions were noted. Patient tolerated the procedure well. Impression: 1. Upper endoscopy revealed distal esophageal stricture/Schatzki's ring was balloon dilation using 10-16.5 mm TTS balloon as described and antral gastritis: Colonoscopy revealed scattered diverticulosis but no evidence of colorectal neoplasia 2. Recommendations: Findings of this examination were discussed with the patient as well as his family. He was advised to remain on a clear liquid diet for breakfast today. Continue with current medications and follow antireflux measures. Recommend repeat screening colonoscopy in 10 years.
[2022-05-15 08:17] VITALS: RESP 18
[2022-05-15 08:30] VITALS: BP 133/81; PULSE 59
== END 2022-05-15 09:05 ==
LOC: ORWHC2ENDO 06:32
PROVIDERS: ATTEND Internal Medicine Gastroenterology
DX: K22.2 Esophageal obstruction (principal); K57.30 Diverticulosis of large intestine without perforation or abscess without bleeding; K29.50 Unspecified chronic gastritis without bleeding; I10 Essential (primary) hypertension; E78.5 Hyperlipidemia, unspecified; K21.9 Gastro-esophageal reflux disease without esophagitis; Z88.2 Allergy status to sulfonamides; Z79.899 Other long term (current) drug therapy; Z79.82 Long term (current) use of aspirin; Z79.891 Long term (current) use of opiate analgesic
CPT/HCPCS: 88305; 43239; 43249; J2704; J2001; C1726; G0121

== ENCOUNTER → 2022-07-02 | Outpatient (CLI) | payer MEDICARE, OTHER ==
--- NOTE | 2022-07-02 11:29 | US ---
EXAMINATION TYPE: US kidneys/renal and bladder DATE OF EXAM: 07/02/2022 COMPARISON: NONE CLINICAL HISTORY: R80.9 PROTEIN IN URINE. EXAM MEASUREMENTS: Right Kidney: 11.3 x 4.8 x 4.5cm Left Kidney: 12.0 x 4.6 x 5.3 cm Right Kidney: no hydro or masses seen Left Kidney: probable cyst measuring 1.4 x 1.6 x 1.6cm Bladder: Patient felt like his bladder was very full, it was not fully distended There is no evidence for hydronephrosis at this point in time. No nephrolithiasis is seen. No tawnya s are identified. The urinary bladder is anechoic. IMPRESSION: 1. No evidence of obstructive uropathy. 2. Left renal cyst.
== END | disposition home or self-care (01) ==
LOC: RADUSWWP 10:11
PROVIDERS: ATTEND Internal Medicine
DX: N28.1 Cyst of kidney, acquired (principal); R80.9 Proteinuria, unspecified
CPT/HCPCS: 76770

== ENCOUNTER → 2022-10-07 | Outpatient (CLI) | payer MEDICARE, OTHER ==
--- NOTE | 2022-10-07 08:43 | US ---
EXAMINATION TYPE: US duplex aorta DATE OF EXAM: 10/07/2022 COMPARISON: US CLINICAL HISTORY: Z13.6 Screen for AAA. Screening for AAA. Prior smoker, hypertension, hyperlipidemi a. TECHNIQUE: Multiple sonographic images of the abdominal aorta are obtained. FINDINGS: EXAM MEASUREMENTS: Abdominal Aorta: Proximal: 2.8 x 2.3 cm. Mid: Portions were obscured by gas. Mid-distal measures: 2.0 x 2.6 cm. Distal: 2.0 x 1.9 cm. Bifurcation: Limited due to gas. Right: 0.9 x 1.2 cm. Left: 1.2 x 1.2 cm. 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
--- NOTE | 2022-10-07 09:24 | CTL ---
EXAMINATION TYPE: CT Low Dose Lung DATE OF EXAM ORDERED: 10/07/2022 HISTORY: . Lung cancer screening CT DLP: 123.[address] CTDI: 3.5 mGy Automated exposure control for dose reduction was used. SCREENING VISIT: COMPARISON: None TECHNIQUE: Low dose computed tomography scan was performed through the chest at 1 mm thick sections a nd reconstructed images in multiple planes at 1 mm and [address] DIAGNOSTIC QUALITY: Satisfactory FINDINGS: Emphysematous changes are noted. There is biapical pleural thickening. There is a calcified 3 mm nodule in the right middle lobe axial image 138. No pleural effusion or pne umothorax. Focal pneumonia. Additional calcified subpleural nodules measuring 2 mm in the left upper lobe and superior segment left lower lobe. Mild basilar and central bronchiectasis with subsegmental basilar changes most typical of scarring or atelectasis no pleural effusion. Vascular calcifications are seen. Hypertrophic and degenerative change spine. There is a small hiatal hernia. Dense three-vessel coronary artery calcification. Aorta of normal caliber with atherosclerotic change s. Grossly no pathologic adenopathy by noncontrast technique. 2 mm noncalcified subpleural nodule left upper lobe axial image 114. IMPRESSION: 1. COPD with benign calcified and noncalcified less than 5 mm nodules as discussed above. Have a mckay gn appearance. 2. Dense three-vessel coronary artery calcification correlate clinically. 3. Hiatal hernia CT LUNG RAD AND CT CHEST RECOMMENDATION: Lung-Rad 2 Benign Appearance or Behavior: Continue annual sc reening with LDCT in 12 months. S Modifier (other clinically significant findings): S
== END | disposition home or self-care (01) ==
LOC: RADUSWWP 08:09
PROVIDERS: ATTEND Internal Medicine
DX: Z12.2 Encounter for screening for malignant neoplasm of respiratory organs (principal); Z13.6 Encounter for screening for cardiovascular disorders; I10 Essential (primary) hypertension; I25.10 Atherosclerotic heart disease of native coronary artery without angina pectoris; J44.9 Chronic obstructive pulmonary disease, unspecified; R91.8 Other nonspecific abnormal finding of lung field; K44.9 Diaphragmatic hernia without obstruction or gangrene; Z87.891 Personal history of nicotine dependence
CPT/HCPCS: 71271; 93979

== ENCOUNTER → 2022-12-09 | Outpatient (CLI) | payer MEDICARE, OTHER ==
[~2022-12-09] MED LIST changes: -LIDOCAINE 1% (10MG/ML) FOR IV START INTRADERMA PRN; +REGADENOSON 0.4 MG/5 ML SYRINGE IV ONE
--- NOTE | 2022-12-09 12:14 | CA ---
Lexiscan Nuclear Stress Test Report Name: Nadeem Mckee Exam Date: 12/09/2022 11:19 Exam Location: [facility] Stress Ht (in): 69 Wt (lb): 211 BSA: 2.11 Ordering Phys: Sg Godwin MD Referring Phys: Sg Godwin MD Technologist: Vincent Amato Age: 67 Gender: M : 1955 Procedure CPT: Indications: I25.10 CORONARY ARTERY CALCIFICATION ICD-10 Codes: Patient History: HTN, ELEVATED CHOLESTEROL LEVELS, FORMER SMOKER, PRIOR CARDIAC CATH WITH STENT X 2 Medications: ATORVASTATIN, OMEPRAZOLE, HZTZ, ASA Meds past 24 hrs: Pretest Chest Pain: STRESS TEST Lexiscan Protocol Exercise Duration (min:sec): 02:[address] Depressions (mm): Angina Score: Mars Score: Resting HR (bpm): 80 Peak HR (bpm): 87 Resting BP (mmHg): 151 / 78 Peak BP (mmHg): 177 / 69 MPHR: 153 Target HR: 130 % MPHR: 57 METS: 1.0 Total Dose: Peak Dose: Atropine: Double Product: 36010 BP Response: Stress Termination: Stress Symptoms: Stress Summary: ECG ANALYSIS Resting ECG: Normal sinus rhythm normal axis normal intervals Stress ECG: Negative stress test by EKG criteria CONCLUSIONS Negative stress test by EKG criteria Cardiolite portion of the stress test will be reported separately Dr. Colby Silva MD (Electronically Signed) Final Date: 09 December 2022 12:13
--- NOTE | 2022-12-09 12:57 | NM ---
EXAMINATION TYPE: NM stress lexiscan cardiolite DATE OF EXAM: 12/09/2022 COMPARISON: NONE HISTORY: History of hypertension and coronary artery disease with two-vessel angioplasty along with h ypercholesteremia. Abnormal CT. Coronary artery calcification. TECHNIQUE: After the intravenous administration of 9.5 mCi Tc 99m Sestamibi - Cardiolite resting SPE CT images acquired 45 minutes post injection. The patient received 0.4mg Lexiscan, 25.8 mCi Tc 99m Sestamibi - Stress images obtained [address] injection FINDINGS: Review of stress and rest SPECT images demonstrates suggestion of diminished radiotracer uptake later al left ventricular wall on stress and rest images with possible small area of ischemia suggested tow ards the apex. Correlate clinically for old infarct. Gated analysis shows normal wall motion with an estimated left ventricular ejection fraction of 71 %. IMPRESSION: Abnormal study suggestive on the polar maps. 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 Cannot exclude small area of herber-infarct ischem ia. Correlate clinically.
== END | disposition home or self-care (01) ==
LOC: RADNMMAIN 08:23
PROVIDERS: ATTEND Internal Medicine
DX: I25.10 Atherosclerotic heart disease of native coronary artery without angina pectoris (principal); I10 Essential (primary) hypertension; E78.00 Pure hypercholesterolemia, unspecified; Z87.891 Personal history of nicotine dependence
CPT/HCPCS: 93017; 78452; A9500

== ENCOUNTER 2023-02-28 05:48 | Day surgery (SDC) | payer MEDICARE, OTHER ==
[~2023-02-28 05:48] MED LIST changes: +DEXAMETHASONE SOD PHOSPHATE 4 MG/ML 1 ML VIAL IV ONE; +LACTATED RINGERS 1,000 ML IV SCH; +LIDOCAINE 1% (10MG/ML) FOR IV START INTRADERMA PRN; +MIDAZOLAM 2 MG/2 ML VIAL IV PRN; +ONDANSETRON 4 MG/2 ML VIAL IVP ONE; -REGADENOSON 0.4 MG/5 ML SYRINGE IV ONE
[2023-02-28] MEDS ORDERED: fentaNYL (PF) 50 MCG/1 ML VIAL IV ONE (06:49)
[2023-02-28] MEDS ORDERED: MIDAZOLAM 2 MG/2 ML VIAL IV ONE (06:49)
[2023-02-28] MEDS ORDERED: MIDAZOLAM 2 MG/2 ML VIAL ONE (07:18)
[2023-02-28] MEDS ORDERED: PROPOFOL 10 MG/ML 20 ML VIAL IV ONE (07:18)
[2023-02-28] MEDS ORDERED: KETOROLAC 30 MG/ML 1 ML VIAL ONE (07:18)
[2023-02-28] MEDS ORDERED: ROPIVACAINE 5 MG/ML 30 ML VIAL ONE (07:18)
[2023-02-28] MEDS ORDERED: SODIUM CHLORIDE 0.9% (PF) 10 ML VIAL ONE (07:18)
[2023-02-28] MEDS ORDERED: LIDOCAINE 2% INJ 20 MG/ML (2 ML VIAL) ONE (07:18)
[2023-02-28] MEDS ORDERED: fentaNYL (PF) 50 MCG/ML 2 ML AMP ONE ×2 (07:18→10:30)
--- NOTE | 2023-02-28 08:17 | P.ANPRN ---
Procedure Note - Anesthesia - Nerve Block Performed Right Adductor Canal Time Out Performed: Yes (06:49) Date of Procedure: 02/28/23 Procedure Start Time: :49 Procedure Stop Time: :54 Location of Patient: PreOp Indication: Acute Post-Operative Pain, Requested by Surgeon (Dr Cunha) Sedation Type: Sedate with meaningful contact maintained Preparation: Sterile Prep Position: Supine Catheter: None Needle Types: Pajunk Needle Gauge: 21 Ultrasound used to visualize needle placement: Yes Ultrasound used to observe medication spread: Yes Injectate: 0.5% Ropivacaine (see comment for volume) (15cc + 5cc PF Normal saline) Blood Aspirated: No Pain Paresthesia on Injection Noted: No Resistance on Injection: Normal Image Stored and Saved: Yes Events: Uneventful and Well Tolerated
--- NOTE | 2023-02-28 08:19 | P.ANPRN ---
Procedure Note - Anesthesia - Nerve Block Performed Right Popliteal Time Out Performed: Yes Date of Procedure: 02/28/23 Procedure Start Time: 06:55 Procedure Stop Time: 07:01 Location of Patient: PreOp Indication: Acute Post-Operative Pain, Requested by Surgeon (DR Cunha) Sedation Type: Sedate with meaningful contact maintained Preparation: Sterile Prep Position: Left Lateral Catheter: None Needle Types: Pajunk Needle Gauge: 21 Ultrasound used to visualize needle placement: Yes Ultrasound used to observe medication spread: Yes Injectate: 0.5% Ropivacaine (see comment for volume) (15cc +5cc PF Normal saline) Blood Aspirated: No Pain Paresthesia on Injection Noted: No Resistance on Injection: Normal Image Stored and Saved: Yes Events: Uneventful and Well Tolerated
[2023-02-28 08:43] VITALS: TEMP 97
--- NOTE | 2023-02-28 08:56 | P.OP ---
Date of Procedure: 02/28/23 Preoperative Diagnosis: Hallux rigidus right foot Postoperative Diagnosis: Same Procedure(s) Performed: First metatarsal phalangeal joint arthrodesis right foot Implants: Arthrex MaxForce plate and screws Anesthesia: NISREEN Surgeon: Matias Cunha Estimated Blood Loss (ml): 1 Pathology: none sent Condition: stable Disposition: PACU Operative Findings: Full-thickness articular cartilage loss on the head of the first metatarsal, covering greater than 80% Description of Procedure: Prior to the patient being brought to the operating room, anesthesia administered a nerve block on the surgical extremity. Then the patient was bro ught into the operating room and placed on table in the supine position. Timeout was taken to confirm correct patient identifiers, correct lateral surgery, and correct procedure. Once the staff in the room were in agreement with the timeout, the patient was induced and placed under general anesthesia. A well-padded tourniquet was placed on the right ankle and then the right foot was prepped and draped in the usual manner. The right foot was exsanguinated and the tourniquet inflated to 250 mmHg. Attention was directed over the dorsal aspect of the first metatarsal phalangeal joint, where a linear incision was made between the long extensor tendon and the neurovascular structures. The incision was deepened down to the subcutaneous layer careful to identify, avoid, and retract any neurovascular structures and cauterize any bleeding vessels. Blunt dissection was continued through the subcutaneous layer down to the periosteum and capsule. A linear periosteal and capsular incision was made medial to the long extensor tendon. Those tissues were then sharply reflected off of the first metatarsal head and shaft as well as the base of the proximal phalanx. The soft tissue was released around the joint so that the joint could be mobilized and accessed. A guidewire was placed through the central aspect of the first metatarsal head parallel to the long access and within the medullary canal. Appropriate size reamers were used to shape the first metatarsal head. Then a concave reamer was inserted over the guidewire and used to remove the articular cartilage and subchondral bone. The wire was removed was used to aggressively fenestrate the head of the first metatarsal. The guidewire was then inserted at the central aspect of the articular surface of the base of the proximal phalanx. The wire was advanced parallel to the long access and within the medullary canal. The convex reamer was then used to remove the articular cartilage and subchondral bone. The guidewire was removed and used to fenestrate the surface. The wound is then thoroughly irrigated with antibiotic saline. Arthrex Arthrocell was placed between the arthrodesis segments. A 0 band first metatarsal phalangeal joint fusion plate was then positioned dorsally over the site. Temporary fixation was used to hold the plate in place. Fluoroscopy was used to check the placement of the plate as well as the joint alignment. Once both positions were satisfactory, a combination of locking and nonlocking screws were placed in the distal part of the plate into the proximal phalanx. The position of the joint and plate were checked again under fluoroscopy. Once both were satisfactory, a wire was placed in the base of the proximal phalanx and across the arthrodesis site to maintain the alignment. The offset drill guide was then placed in the compression slot of the plate. The guide was removed and then the compression device was inserted through the drill hole in engaged with the plate. The compression device was turned to further compress the joint. While holding a compressed another temporary fixation wire was used to hold it in place. A drill hole through the proximal compression slot was then made and a nonlocking screw was inserted and tightened until it engaged the plate and provided further compression across the arthrodesis site. A nonlocking screw was then placed in the drill hole in the proximal aspect of the plate closest to the joint line. The final screw was a locking screw placed in the most proximal hole the plate. Final fluoroscopic imaging showed proper placement of all hardware, maintaining correction of the joint, and excellent compression across the arthrodesis site. The temporary fixation wire was removed and the joint thoroughly irrigated with antibiotic saline. The capsule and periosteal tissues were closed with 0 Vicryl. Subcu closure was done with 4-0 Monocryl. And skin closure was done with 4-0 Stratafix in a running subcuticular manner. Dermal glue was placed around the incision, and once dried, Steri-Strips are placed across incision. An Arthrex jumpstart dressing was placed directly over the incision and then a dry sterile dressings applied to the right foot. The tourniquet was released and capillary refill return to all digits on the right foot. The patient was then placed in a well-padded, well molded plaster posterior mold/sugar tong splint. The ankle was held in neutral position until the splint was dried. Then anesthesia was reversed and the patient was taken recovery with vital signs stable.
[2023-02-28] MEDS: HYDROmorphone 0.5 MG/0.5 ML SYRINGE IVP PRN ×4 (09:07→09:30)
[2023-02-28] MEDS ORDERED: HYDROcodone/APAP 5-325MG 1 EACH TAB ONE (09:51)
[2023-02-28] MEDS ORDERED: HYDROcodone/APAP 5-325MG 1 EACH TAB PO ONE (09:54)
[2023-02-28] MEDS ORDERED: ONDANSETRON 4 MG/2 ML VIAL ONE (10:30)
[2023-02-28] MEDS ORDERED: fentaNYL (PF) 50 MCG/ML 2 ML AMP IVP ONE (10:35)
[2023-02-28] MEDS ORDERED: ONDANSETRON 4 MG/2 ML VIAL IVP ONE (10:36)
[2023-02-28 11:09] VITALS: BP 127/69; PULSE 73; RESP 17
== END 2023-02-28 11:45 | disposition home or self-care (01) ==
LOC: OR 05:48
PROVIDERS: ATTEND Podiatrist
DX: M20.21 Hallux rigidus, right foot (principal); G89.18 Other acute postprocedural pain; I25.10 Atherosclerotic heart disease of native coronary artery without angina pectoris; I10 Essential (primary) hypertension; E78.5 Hyperlipidemia, unspecified; G47.33 Obstructive sleep apnea (adult) (pediatric); M19.90 Unspecified osteoarthritis, unspecified site; K21.9 Gastro-esophageal reflux disease without esophagitis; Z79.899 Other long term (current) drug therapy; Z88.2 Allergy status to sulfonamides
CPT/HCPCS: 64447; 64445; 76942; 28750; C1713; J2250; J1100; J0690; J2405; J3010 ×2; J1885; J2795; J2704; J1170; J2001

== ENCOUNTER → 2023-07-23 | Outpatient (CLI) | payer MEDICARE, OTHER ==
[2023-07-23 16:34] LABS: Basophils # (A) 0.07 X 10*3/uL (0.00-0.10); Basophils % (A) 0.7 %; Eosinophils # (A) 0.12 X 10*3/uL (0.04-0.35); Eosinophils % (A) 1.3 %; HCT 50.5 % (39.6-50.0); HGB 16.8 d/dL (13.0-17.0); Lymphocytes # (A) 1.42 X 10*3/uL (0.90-5.00); Lymphocytes % (A) 14.9 %; MCH 30.6 pg (27.0-32.0); MCHC 33.3 d/dL (32.0-37.0); Mean Platelet Volume 10.3 FL (9.5-12.2); Monocytes # (A) 0.81 X 10*3/uL (0.20-1.00); Monocytes % (A) 8.5 %; NRBC Per 100 WBC 0 X 10*3/uL (0.00-0.01); Neutrophils # (A) 7.07 X 10*3/uL (1.80-7.70); Neutrophils % (A) 74.2 %; Platelet Count 212 X 10*3/uL (140-440); RBC 5.49 X 10*6/uL (4.40-5.60); RDW 13.2 % (11.5-14.5); WBC 9.53 X 10*3/uL (4.50-10.00)
[2023-07-23 18:05] LABS: ALT 23 U/L (10-49); AST 21 U/L (14-35); Albumin 4.5 d/dL (3.8-4.9); Albumin/Globulin Ratio 1.67 Ratio (1.60-3.17); Alkaline Phosphatase 81 U/L (41-126); BUN/Creat Ratio 19.91 Ratio (12.00-20.00); Blood Urea Nitrogen 21.9 mg/dL (9.0-27.0); Calcium 9.6 mg/dL (8.7-10.3); Carbon Dioxide 29.4 mmol/L (21.6-31.8); Chloride 103 mmol/L (96-109); Chol/HDL Ratio 4.36 Ratio; Globulin 2.7 d/dL (1.6-3.3); Glucose 102 mg/dL (70-110); LDL Cholesterol,Calculated 116.7 mg/dL (0.0-131.0); Potassium 4.2 mmol/L (3.5-5.5); Sodium 143 mmol/L (135-145); Total Bilirubin 0.9 mg/dL (0.3-1.2); Total Protein 7.2 d/dL (6.2-8.2)
== END | disposition home or self-care (01) ==
LOC: LABWHC1 08:32
PROVIDERS: ATTEND Internal Medicine
DX: Z11.59 Encounter for screening for other viral diseases (principal); Z12.5 Encounter for screening for malignant neoplasm of prostate; I10 Essential (primary) hypertension
CPT/HCPCS: 80061; 87522; 80053; 84443; 85025; 36415; G0103

== ENCOUNTER → 2023-10-14 | Outpatient (CLI) | payer MEDICARE, OTHER ==
--- NOTE | 2023-10-14 09:09 | CTL ---
EXAMINATION TYPE: CT Low Dose Lung DATE OF EXAM ORDERED: 10/14/2023 COMPARISON: 10/07/2022 HISTORY: . Low Dose CT Lung Screening CT DLP: 99.[address] CTDI: 2.6 mGy IV CONTRAST USED: None. SCREENING VISIT: There COMPARISON: None. TECHNIQUE: Low dose computed tomography scan was performed through the chest at 1 millimeter thick se ctions and reconstructed images in the coronal plane at [address] DIAGNOSTIC QUALITY: Satisfactory FINDINGS: LUNG NODULES: Biapical scarring with scattered calcified nodules. LUNGS: COPD: Severity: Mild Fibrosis: Severity:None Lymph nodes: None Other findings: None RIGHT PLEURAL SPACE: Effusion: None Calcification: None Thickening: None Pneumothorax: None LEFT PLEURAL SPACE: Effusion: None Calcification: None Thickening: None Pneumothorax: None HEART: Heart Size: Mildly enlarged Coronary calcification: Mild Pericardial effusion: None OTHER FINDINGS: Upper abdomen: No significant abnormality Bony thorax: Degenerative changes Supraclavicular region: No significant abnormalityOther: No significant abnormalityI IMPRESSION: Benign FOLLOW UP CT CHEST RECOMMENDATION: Follow-up screening in one year CT LUNG RAD: LUNG RAD CATEGORY category 2 benign appearance and/or behavior
== END | disposition home or self-care (01) ==
LOC: RADCTMAIN 08:21
PROVIDERS: ATTEND Internal Medicine
DX: Z12.2 Encounter for screening for malignant neoplasm of respiratory organs (principal); R91.1 Solitary pulmonary nodule; Z87.891 Personal history of nicotine dependence
CPT/HCPCS: 71271

== ENCOUNTER 2023-11-08 10:54 | Observation (INO) | payer MEDICARE, OTHER ==
--- NOTE | 2023-11-08 12:47 | ED ---
General Adult HPI - General Chief complaint: Dizziness Stated complaint: collarbone`pain Time Seen by Provider: 11/08/23 11:40 Source: patient, RN notes reviewed Mode of arrival: ambulatory Limitations: no limitations - History of Present Illness Initial comments: 68-year-old male presents to the emergency department for evaluation of vertigo and neck pain. He states that this started this morning and lasted around 2 hours. He states that it has since resolved. He states that he felt that he was spinning and had to put his head between his knees to help him feel better. He states he felt worse when lying flat in bed. He also reports a frontal headache for the past 3 days which he declines at this time. He also admits to neck pain which is chronic but he states that this was worse today. Past medical history includes CAD, hypertension. - Related Data Home Medications Medication Instructions Recorded Confirmed Atorvastatin [Lipitor] 80 mg PO DAILY 06/21/21 11/08/23 hydroCHLOROthiazide [Hydrodiuril] 25 mg PO DAILY 05/14/22 11/08/23 Aspirin EC [Ecotrin Low Dose] 81 mg PO DAILY 11/08/23 11/08/23 Loratadine 10 mg PO DAILY 11/08/23 11/08/23 Metoprolol Tartrate [Lopressor] 37.5 mg PO DAILY 11/08/23 11/08/23 amLODIPine [Norvasc] 2.5 mg PO DAILY 11/08/23 11/08/23 Allergies Allergy/AdvReac Type Severity Reaction Status Date / Time Sulfa (Sulfonamide Allergy Severe Throat Verified 11/08/23 11:20 Antibiotics) Swelling, rash, difficulty breathing Review of Systems ROS Statement: Those systems with pertinent positive or pertinent negative responses have been documented in the HPI. ROS Other: All systems not noted in ROS Statement are negative. Past Medical History Past Medical History: Coronary Artery Disease (CAD), GERD/Reflux, Hyperlipidemia, Hypertension, Osteoarthritis (OA), Sleep Apnea/CPAP/BIPAP Additional Past Medical History / Comment(s): Hx headaches, chronic neck & shoulder pain. occ heart palpitations. Has not used CPAP in a while. History of Any Multi-Drug Resistant Organisms: None Reported Past Surgical History: Appendectomy, Heart Catheterization, Hernia Repair, Joint Replacement, Orthopedic Surgery Additional Past Surgical History / Comment(s): Rt shoulder surgery with screw, cervical fusion., COLONOSCOPY, heart cath 06/21/21, right hip replacement Past Anesthesia/Blood Transfusion Reactions: No Reported Reaction Additional Past Anesthesia/Blood Transfusion Reaction / Comment(s): no blood tx hx Past Psychological History: No Psychological Hx Reported Smoking Status: Former smoker Past Alcohol Use History: None Reported Past Drug Use History: None Reported - Past Family History Brother(s) Family Medical History: Cancer Additional Family Medical History / Comment(s): Kidney CA with mets. General Exam Limitations: no limitations General appearance: alert, in no apparent distress Head exam: Present: atraumatic, normocephalic, normal inspection Eye exam: Present: normal appearance, PERRL, EOMI. Absent: scleral icterus, conjunctival injection, periorbital swelling ENT exam: Present: normal exam, normal oropharynx, mucous membranes moist, TM's normal bilaterally, normal external ear exam Neck exam: Present: normal inspection, full ROM. Absent: tenderness, meningismus, lymphadenopathy Respiratory exam: Present: normal lung sounds bilaterally. Absent: respiratory distress, wheezes, rales, rhonchi, stridor Cardiovascular Exam: Present: regular rate, normal rhythm, normal heart sounds. Absent: systolic murmur, diastolic murmur, rubs, gallop, clicks GI/Abdominal exam: Present: soft, normal bowel sounds. Absent: distended, tenderness, guarding, rebound, rigid Extremities exam: Present: normal inspection, full ROM, normal capillary refill. Absent: tenderness, pedal edema, joint swelling, calf tenderness Back exam: Present: normal inspection Neurological exam: Present: alert, oriented X3, CN II-XII intact, normal gait Expanded Neurological exam: Present: protecting the airway Patient oriented to: Present: person, place, time Speech: Present: fluid speech Cranial nerves: EOM's Intact: Normal, Gag Reflex: Normal, Tongue Deviation: Normal, Facial Sensation: Normal Ataxia: Absent: yes Cerebellar function: Finger to Nose: Normal, Heel to [place]: Normal Upper motor neuron: Pronator Drift: Normal Sensory exam: Upper Extremity Light Touch: Normal, Lower Extremity Light Touch: Normal Motor strength exam: RUE: 5, LUE: 5, RLE: 5, LLE: 5 Eye Response: (4) open spontaneously Motor Response: (6) obeys commands Verbal Response: (5) oriented Danny Total: 15 Course Vital Signs 11/08/23 11/08/23 11:18 13:15 Temperature 98.7 F Pulse Rate 72 Respiratory 18 Rate Blood Pressure 161/64 Blood Pressure 144/70 [Left Arm] Blood Pressure 135/69 [Right Arm Sitting] O2 Sat by Pulse 99 Oximetry Medical Decision Making - Medical Decision Making Was pt. sent in by a medical professional or institution (, PA, SPONSORSHIP MANAGER, urgent care, hospital, or penitentiary...) When possible be specific @ -No Did you speak to anyone other than the patient for history (EMS, parent, family, police, friend...)? What history was obtained from this source @ -Patient's provided some of the history of this patient Did you review nursing and triage notes (agree or disagree)? Why? @ -I reviewed and agree with nursing and triage notes Were old charts reviewed (outside hosp., previous admission, EMS record, old EKG, old radiological studies, urgent care reports/EKG's, penitentiary records)? Report findings @ -No old charts were reviewed Differential Diagnosis (chest pain, altered mental status, abdominal pain women, abdominal pain men, vaginal bleeding, weakness, fever, dyspnea, syncope, headache, dizziness, GI bleed, back pain, seizure, CVA, palpatations, mental health, musculoskeletal)? @ -Differential Dizziness: Benign paroxysmal positional Vertigo, Menieres disease, otitis media, acoustic neuroma, vertebrobasilar insufficiency, cerebellar stroke, encephalitis, hypovolemic, arrhythmia, coronary artery syndrome, anemia, this is not meant to be an all-inclusive list EKG interpreted by me (3pts min.). @ -EKG at 1251 shows sinus rhythm rate 66, CT 199, QRS 100, QTQTc 378/392 X-rays interpreted by me (1pt min.). @ -None done CT interpreted by me (1pt min.). @ -CT brain shows no acute intracranial process CTA shows occlusion at origin of the left vertebral artery with reconstitution of flow at the upper cervical left vertebral artery; mild to moderate ather osclerotic changes of bilateral carotid bifurcations U/S interpreted by me (1pt. min.). @ -None done What testing was considered but not performed or refused? (CT, X-rays, U/S, labs)? Why? @ -None What meds were considered but not given or refused? Why? @ -None Did you discuss the management of the patient with other professionals (professionals i.e. DrLayton, PA, SPONSORSHIP MANAGER, lab, RT, psych nurse, rn social services, greige goods inspector, teacher, property utilization officer, foster care case manager)? Give summary @ -case discussed with neuro-grinding machine tender. Acute intervention is not needed, recommended aspirin and Brilinta Case discussed with Dr. Saunders who will consult on the patient. Request brain MRI Case discussed with Dr. Serrano who is accepting of the admission Was smoking cessation discussed for >3mins.? @ -No Was critical care preformed (if so, how long)? @ -no Were there social determinants of health that impacted care today? How? (Homelessness, low income, unemployed, alcoholism, drug addiction, transportation, low edu. Level, literacy, decrease access to med. care, nursing home, rehab)? @ -No Was there de-escalation of care discussed even if they declined (Discuss DNR or withdrawal of care, Hospice)? DNR status @ -No What co-morbidities impacted this encounter? (DM, HTN, Smoking, COPD, CAD, Cancer, CVA, ARF, Chemo, Hep., AIDS, mental health diagnosis, sleep apnea, morbid obesity)? @ -None Was patient admitted / discharged? Hospital course, mention meds given and route , prescriptions, significant lab abnormalities, going to OR and other pertinent info. @ -admitted. Patient presented to the emergency department for acute vertigo which is since resolved. NIH 0, no focal neurological deficits at this time. Laboratory studies obtained. CBC shows WBC 8.5, he will was 16.2, hematocrit 47.3; CMP shows sodium 138, potassium 3.2, creatinine 0.80; influenza, RSV, Covid negative. Chest x-ray shows COPD changes with no acute infiltrate; CT brain shows no acute intracranial process; CT angiogram brain shows occlusion of the left vertebral artery with reconstitution of flow left upper cervical left vertebral artery, mild to moderate this chronic changes of bilateral carotid bifurcations, 40% proximal left ICA stenosis and mild 25% proximal right ICA stenosis; mild atherosclerotic calcifications throughout the carotid siphons. The case was discussed with neuro-grinding machine tender, acute intervention is not needed at this time as patient is not having any focal neuro deficits at this time, recommended aspirin and brilinta. Case was also discussed with urology, Dr. Edwards who will consult on the patient and is requesting a brain MRI. Case was discussed with Dr. Serrano with [facility] [place] [facility] who is accepting of the admission. Case discussed with AMADOU Cantrell. Undiagnosed new problem with uncertain prognosis? @ -vertebral artery occlusion Drug Therapy requiring intensive monitoring for toxicity (Heparin, Nitro, Insulin, Cardizem)? @ -No Were any procedures done? @ -No Diagnosis/symptom? @ -Occlusion of left vertebral artery Acute, or Chronic, or Acute on Chronic? @ -Acute Uncomplicated (without systemic symptoms) or Complicated (systemic symptoms)? @ -uncomplicated Side effects of treatment? @ -No Exacerbation, Progression, or Severe Exacerbation? @ -No Poses a threat to life or bodily function? How? (Chest pain, USA, DC, pneumonia, PE, COPD, DKA, ARF, appy, cholecystitis, CVA, Diverticulitis, Homicidal, Suicidal, threat to staff... and all critical care pts) @ -yes high risk - Lab Data Result diagrams: 11/08/23 12:42 11/08/23 12:42 Lab Results 11/08/23 11/08/23 11/08/23 Range/Units 11:25 12:42 12:42 WBC 8.5 (3.8-10.6) k/uL RBC 5.07 (4.30-5.90) m/uL Hgb 16.2 (13.0-17.5) gm/dL Hct 47.3 (39.0-53.0) % MCV 93.3 (80.0-100.0) fL MCH 31.9 (25.0-35.0) pg MCHC 34.2 (31.0-37.0) g/dL RDW 12.8 (11.5-15.5) % Plt Count 180 (150-450) k/uL MPV 7.4 Neutrophils % 80 % Lymphocytes % 10 % Monocytes % 7 % Eosinophils % 1 % Basophils % 1 % Neutrophils # 6.8 (1.3-7.7) k/uL Lymphocytes # 0.8 L (1.0-4.8) k/uL Monocytes # 0.6 (0-1.0) k/uL Eosinophils # 0.1 (0-0.7) k/uL Basophils # 0.1 (0-0.2) k/uL PT 10.8 (10.0-12.5) sec INR 1.0 (<1.2) APTT 25.1 (22.0-30.0) sec Sodium (137-145) mmol/L Potassium (3.5-5.1) mmol/L Chloride (98-107) mmol/L Carbon Dioxide (22-30) mmol/L Anion Gap mmol/L BUN (9-20) mg/dL Creatinine (0.66-1.25) mg/dL Est GFR (CKD-EPI)AfAm (>60 ml/min/1.73 sqM) Est GFR (CKD-EPI)NonAf (>60 ml/min/1.73 sqM) Glucose (74-99) mg/dL Calcium (8.4-10.2) mg/dL Total Bilirubin (0.2-1.3) mg/dL AST (17-59) U/L ALT (4-49) U/L Alkaline Phosphatase (38-126) U/L Total Protein (6.3-8.2) g/dL Albumin (3.5-5.0) g/dL Influenza Type A (PCR) Not Detected (Not Detectd) Influenza Type B (PCR) Not Detected (Not Detectd) RSV (PCR) Not Detected (Not Detectd) SARS-CoV-2 (PCR) Not Detected (Not Detectd) 11/08/23 Range/Units 12:42 WBC (3.8-10.6) k/uL RBC (4.30-5.90) m/uL Hgb (13.0-17.5) gm/dL Hct (39.0-53.0) % MCV (80.0-100.0) fL MCH (25.0-35.0) pg MCHC (31.0-37.0) g/dL RDW (11.5-15.5) % Plt Count (150-450) k/uL MPV Neutrophils % % Lymphocytes % % Monocytes % % Eosinophils % % Basophils % % Neutrophils # (1.3-7.7) k/uL Lymphocytes # (1.0-4.8) k/uL Monocytes # (0-1.0) k/uL Eosinophils # (0-0.7) k/uL Basophils # (0-0.2) k/uL PT (10.0-12.5) sec INR (<1.2) APTT (22.0-30.0) sec Sodium 138 (137-145) mmol/L Potassium 3.2 L (3.5-5.1) mmol/L Chloride 100 (98-107) mmol/L Carbon Dioxide 30 (22-30) mmol/L Anion Gap 8 mmol/L BUN 16 (9-20) mg/dL Creatinine 0.80 (0.66-1.25) mg/dL Est GFR (CKD-EPI)AfAm >90 (>60 ml/min/1.73 sqM) Est GFR (CKD-EPI)NonAf >90 (>60 ml/min/1.73 sqM) Glucose 112 H (74-99) mg/dL Calcium 9.2 (8.4-10.2) mg/dL Total Bilirubin 0.8 (0.2-1.3) mg/dL AST 24 (17-59) U/L ALT 23 (4-49) U/L Alkaline Phosphatase 80 (38-126) U/L Total Protein 6.8 (6.3-8.2) g/dL Albumin 3.8 (3.5-5.0) g/dL Influenza Type A (PCR) (Not Detectd) Influenza Type B (PCR) (Not Detectd) RSV (PCR) (Not Detectd) SARS-CoV-2 (PCR) (Not Detectd) Disposition Clinical Impression: Vertebral artery occlusion Disposition: ADMITTED IP TO THIS [facility] Condition: Stable Is patient prescribed a controlled substance at d/c from ED?: No
--- NOTE | 2023-11-08 13:04 | XR ---
EXAMINATION TYPE: XR chest 2V DATE OF EXAM: 11/08/2023 COMPARISON: 10/03/2011 HISTORY: 68-year-old male with pain TECHNIQUE: PA and lateral views FINDINGS: ACDF hardware. Previous screw fixation across the coracoclavicular junction with chronically fracture d screw (back to at least the CT of 04/26/2021). Mild interstitial prominence has a somewhat chronic a ppearance. No increasing consolidation. Heart upper limits of normal in size. Aorta and pulmonary vas culature within normal limits. IMPRESSION: COPD and chronic changes. No focal infiltrate seen.
[2023-11-08 13:21] LABS: Basophils # (A) 0.1 k/uL (0-0.2); Basophils % (A) 1 %; Eosinophils # (A) 0.1 k/uL (0-0.7); Eosinophils % (A) 1 %; HCT 47.3 % (39.0-53.0); HGB 16.2 gm/dL (13.0-17.5); Lymphocytes # (A) 0.8 k/uL (1.0-4.8); Lymphocytes % (A) 10 %; MCH 31.9 pg (25.0-35.0); MCHC 34.2 g/dL (31.0-37.0); MCV 93.3 fL (80.0-100.0); Mean Platelet Volume 7.4; Monocytes # (A) 0.6 k/uL (0-1.0); Monocytes % (A) 7 %; Neutrophils # (A) 6.8 k/uL (1.3-7.7); Neutrophils % (A) 80 %; Platelet Count 180 k/uL (150-450); RBC 5.07 m/uL (4.30-5.90); RDW 12.8 % (11.5-15.5); WBC 8.5 k/uL (3.8-10.6)
[2023-11-08 13:40] LABS: ALT 23 U/L (4-49); AST 24 U/L (17-59); African American GFR (CKD) >90 (>60 ml/min/1.73 sqM); Albumin 3.8 g/dL (3.5-5.0); Alkaline Phosphatase 80 U/L (38-126); Anion Gap 8 mmol/L; Blood Urea Nitrogen 16 mg/dL (9-20); Calcium 9.2 mg/dL (8.4-10.2); Carbon Dioxide 30 mmol/L (22-30); Chloride 100 mmol/L (98-107); Glucose 112 mg/dL (74-99); Non-African American GFR(CKD) >90 (>60 ml/min/1.73 sqM); Potassium 3.2 mmol/L (3.5-5.1); Sodium 138 mmol/L (137-145); Total Bilirubin 0.8 mg/dL (0.2-1.3); Total Protein 6.8 g/dL (6.3-8.2)
[2023-11-08 14:16] LABS: Partial Thromboplastin Time 25.1 sec (22.0-30.0); Prothrombin Time 10.8 sec (10.0-12.5)
--- NOTE | 2023-11-08 14:42 | CT ---
EXAMINATION TYPE: CT brain wo con DATE OF EXAM: 11/08/2023 COMPARISON: None HISTORY: 68-year-old male headache and vertigo, dizziness TECHNIQUE: Examination was done in axial plane without intravenous contrast. Coronal and sagittal r econstructions performed. CT DLP: 1725.9 mGycm Automated exposure control for dose reduction was used. FINDINGS: There is no evidence of acute intracranial hemorrhage, acute ischemic changes, mass, mass-effect, or extra-axial fluid collection. There is no effacement of cerebral sulci or basal subarachnoid cister ns. There is no hydrocephalus. There is no midline shift. Henderson-white matter distinction is preserv ed. Paranasal sinuses and mastoid air cells are well pneumatized. Orbits and globes are intact. IMPRESSION: No acute intracranial abnormality seen.
--- NOTE | 2023-11-08 14:50 | CT ---
EXAMINATION TYPE: CT angio head neck DATE OF EXAM: 11/08/2023 COMPARISON: Brain same day HISTORY: 16-year-old male headache and vertigo, dizziness TECHNIQUE: Contiguous axial scanning of the head and neck performed with IV Contrast, patient injecte d with 65 mL of Isovue 370. Coronal and sagittal reconstructions performed. Reconstructions generated on a dedicated independent workstation. CT DLP: 1725.9 mGycm Automated exposure control for dose reduction was used. FINDINGS: Neck: Emphysematous change in the visualized upper lungs. Mild atherosclerotic arch calcifications. Hiram ional branching anatomy. Severe atherosclerotic change at the takeoff of the left vertebral artery with occlusion. There is re constitution at the upper cervical left vertebral artery. Right common carotid artery is patent. Mild to moderate atherosclerotic changes at the right carotid bifurcation with mild, 25% proximal rig ht ICA narrowing. NASCET criteria was utilized. Remainder of the right ICA is patent. Left common carotid artery is patent. There is moderate atherosclerotic change in the left carotid bi furcation mild, approximately 40% proximal left ICA stenosis. Head: The reconstituted left vertebral artery is visualized. There is enhancement of both vertebral and bas ilar arteries as well as the remainder of the posterior circulation. Patent right posterior communica ting arteries noted. Dural venous sinuses are patent. Scattered atherosclerotic changes throughout the bilateral carotid siphons without significant narrow ing. The remainder of the anterior circulation is also patent. No aneurysmal change is seen. IMPRESSION: NECK: 1. OCCLUSION AT THE ORIGIN OF THE LEFT VERTEBRAL ARTERY. THERE IS RECONSTITUTION OF FLOW AT THE UPPER CERVICAL LEFT VERTEBRAL ARTERY. QUERY TO IF THIS IS CONTRIBUTING TO THE PATIENT'S SYMPTOMS. 2. MILD TO MODERATE ATHEROSCLEROTIC CHANGES OF THE BILATERAL CAROTID BIFURCATIONS. 3 CHANGES RESULT IN MILD, 40% PROXIMAL LEFT ICA STENOSIS AND MILD, 25% PROXIMAL RIGHT ICA STENOSIS. Head: 4. MILD ATHEROSCLEROTIC CALCIFICATIONS THROUGHOUT THE CAROTID SIPHONS. NO LARGE VESSEL INTRACRANIAL A RTERIAL OCCLUSION, SIGNIFICANT STENOSIS, OR ANEURYSMAL CHANGE IS SEEN.
[2023-11-08] MEDS ORDERED: TICAGRELOR 90 MG TAB PO STA (15:32)
[2023-11-08] MEDS ORDERED: ASPIRIN 325 MG TAB PO STA (15:32)
[2023-11-08] MEDS ORDERED: NALOXONE 0.4 MG/ML 1 ML VIAL IV PRN (15:53)
[2023-11-08] MEDS ORDERED: POTASSIUM CHLORIDE ER 20 MEQ TAB.ER PO STA (16:40)
--- NOTE | 2023-11-08 16:44 | P.HPIM ---
History of Present Illness H&P Date: 11/08/23 68-year-old male with PMH of CAD, hypertension, dyslipidemia, GERD He presents the ED as he felt off balance this morning when he woke up. He also reported nausea but no vomiting. He has been dealing with a frontal headache over the past 3 days. He denies any slurred speech, confusion, facial droop or focal neurologic deficit. Symptoms have completely resolved. In the ED, he underwent extensive evaluation. BP 161/64, pulse 72, respiratory rate 18, 99% on room air, afebrile. CBC was unremarkable. Coagulation panel was unremarkable. CMP showed potassium of 3.2 and glucose of 112. Influenza, COVID-19, RSV negative. CT brain negative. CTA head and neck showed occlusion of the left vertebral artery, mild to moderate bilateral carotid stenosis. General: non toxic, no distress, appears at stated age Derm: warm, dry Head: atraumatic, normocephalic, symmetric Eyes: EOMI, no lid lag, anicteric sclera Mouth: no lip lesion, mucus membranes moist Cardiovascular: S1S2 reg, no murmur Lungs: CTA bilateral, no rhonchi, no rales , no accessory muscle use Abdominal: soft, nontender to palpation, no guarding, no appreciable organomegaly Ext: no gross muscle atrophy, no edema, no contractures Neuro: Strength 5 out of 5 in all 4 extremities with sensation intact to touch. Cranial nerves II-12 grossly intact. Psych: Alert, oriented, appropriate affect Based on my assessment of this patient, this patient meets a high complexity level of care. Patient has an acute diagnosis of vertebral artery occlusion that poses a threat to life or bodily function. Ataxia Vertebral artery occlusion: ASA 81 mg PO QD. Brilinta 90 mg PO BID. MRI brain. Echocardiogram. A1c Lipid panel. Telemetry monitoring. Advanced neurochecks. PT/OT/ST. Neurology consult. Hypokalemia: KCl 40 meq PO x 1. CODE STATUS: FULL CODE DVT Prophylaxis: Lovenox SQ GI Prophylaxis: Protonix. Designated medical POA if patient is not able to make medical decisions for themselves: I have reviewed the following decorating consultant notes: I have reviewed the results of the following tests: As above. I have ordered the following tests: As above. I have discussed the care of this patient with the following independent historian: I have independently interpreted the following test below: CT brain, CXR I have discussed the management of this patient with the following physician: Past Medical History Past Medical History: Coronary Artery Disease (CAD), GERD/Reflux, Hyperlipidemia, Hypertension, Osteoarthritis (OA), Sleep Apnea/CPAP/BIPAP Additional Past Medical History / Comment(s): Hx headaches, chronic neck & shoulder pain. occ heart palpitations. Has not used CPAP in a while. History of Any Multi-Drug Resistant Organisms: None Reported Past Surgical History: Appendectomy, Heart Catheterization, Hernia Repair, Joint Replacement, Orthopedic Surgery Additional Past Surgical History / Comment(s): Rt shoulder surgery with screw, cervical fusion., COLONOSCOPY, heart cath 06/21/21, right hip replacement Past Anesthesia/Blood Transfusion Reactions: No Reported Reaction Additional Past Anesthesia/Blood Transfusion Reaction / Comment(s): no blood tx hx Past Psychological History: No Psychological Hx Reported Smoking Status: Former smoker Past Alcohol Use History: None Reported Past Drug Use History: None Reported - Past Family History Brother(s) Family Medical History: Cancer Additional Family Medical History / Comment(s): Kidney CA with mets. Medications and Allergies Home Medications Medication Instructions Recorded Confirmed Type Atorvastatin [Lipitor] 80 mg PO DAILY 06/21/21 11/08/23 History hydroCHLOROthiazide [Hydrodiuril] 25 mg PO DAILY 05/14/22 11/08/23 History Aspirin EC [Ecotrin Low Dose] 81 mg PO DAILY 11/08/23 11/08/23 History Loratadine 10 mg PO DAILY 11/08/23 11/08/23 History Metoprolol Tartrate [Lopressor] 37.5 mg PO DAILY 11/08/23 11/08/23 History amLODIPine [Norvasc] 2.5 mg PO DAILY 11/08/23 11/08/23 History Allergies Allergy/AdvReac Type Severity Reaction Status Date / Time Sulfa (Sulfonamide Allergy Severe Throat Verified 11/08/23 11:20 Antibiotics) Swelling, rash, difficulty breathing Physical Exam Vitals: Vital Signs Temp Pulse Resp BP BP BP Pulse Ox 11/08/23 13:15 144/70 135/69 11/08/23 11:18 98.7 F 72 18 161/64 99 Intake and Output 11/08/23 11/08/23 11/08/23 06:59 14:59 22:59 Other: Weight 90.718 kg Results CBC & Chem 7: 11/08/23 12:42 11/08/23 12:42 Labs: Abnormal Lab Results - Last 24 Hours (Table) 11/08/23 11/08/23 Range/Units 12:42 12:42 Lymphocytes # 0.8 L (1.0-4.8) k/uL Potassium 3.2 L (3.5-5.1) mmol/L Glucose 112 H (74-99) mg/dL
[2023-11-09] MEDS: TICAGRELOR 90 MG TAB PO SCH ×2 (09:16→20:13)
[2023-11-09] MEDS: LORATADINE 10 MG TAB PO SCH (09:16)
[2023-11-09] MEDS: ENOXAPARIN 40 MG/0.4 ML SYRINGE SQ SCH (09:16)
[2023-11-09] MEDS: ASPIRIN 81 MG PO SCH (09:16)
[2023-11-09] MEDS: ATORVASTATIN 80 MG TAB PO SCH (09:16)
[2023-11-09 10:34] LABS: Chol/HDL Ratio 3.86 Ratio; LDL Cholesterol,Calculated 93.8 mg/dL (0.0-131.0)
--- NOTE | 2023-11-09 11:23 | P.PN ---
Subjective Progress Note Date: 11/09/23 68-year-old male with PMH of CAD, hypertension, dyslipidemia, GERD He presents the ED as he felt off balance this morning when he woke up. He also reported nausea but no vomiting. He has been dealing with a frontal headache over the past 3 days. He denies any slurred speech, confusion, facial droop or focal neurologic deficit. Symptoms have completely resolved. In the ED, he underwent extensive evaluation. BP 161/64, pulse 72, respiratory rate 18, 99% on room air, afebrile. CBC was unremarkable. Coagulation panel was unremarkable. CMP showed potassium of 3.2 and glucose of 112. Influenza, COVID-19, RSV negative. CT brain negative. CTA head and neck showed occlusion of the left vertebral artery, mild to moderate bilateral carotid stenosis. 11/09 Patient was seen and examined. No complaints. Unsteadiness resolved. Feeling back to baseline. A1c 6.1. Lipid panel T. Chol 155, LDL 93.8. General: non toxic, no distress, appears at stated age Derm: warm, dry Head: atraumatic, normocephalic, symmetric Eyes: EOMI, no lid lag, anicteric sclera Cardiovascular: S1S2 reg, no murmur Lungs: CTA bilateral, no rhonchi, no rales , no accessory muscle use Ext: no gross muscle atrophy, no edema, no contractures Neuro: No FND. Psych: Alert, oriented, appropriate affect Based on my assessment of this patient, this patient meets a moderate complexity level of care. Patient has an acute diagnosis of vertebral artery occlusion that poses a threat to life or bodily function. Ataxia Vertebral artery occlusion: ASA 81 mg PO QD. Brilinta 90 mg PO BID. MRI brain. Echocardiogram. Telemetry monitoring. Advanced neurochecks. PT/OT/ST. Neurology consult. Pre-DM Hypokalemia CODE STATUS: FULL CODE DVT Prophylaxis: Lovenox SQ GI Prophylaxis: Protonix. Designated medical POA if patient is not able to make medical decisions for themselves: I have reviewed the following splunk consultant notes: I have reviewed the results of the following tests: A1c. Lipid panel I have ordered the following tests: Pending: MRI brain, Echo I have discussed the care of this patient with the following independent historian: I have independently interpreted the following test below: I have discussed the management of this patient with the following physician: Objective - Vital Signs Vital signs: Vital Signs Temp 97.4 F L 11/09/23 07:00 Pulse 69 11/09/23 07:00 Resp 16 11/09/23 07:00 BP 116/78 11/09/23 07:00 Pulse Ox 97 11/09/23 08:02 FiO2 Intake & Output 11/08/23 11/09/23 11/09/23 18:59 06:59 18:59 Weight 90.718 kg 90.718 kg Other: # Voids 1 - Labs CBC & Chem 7: 11/08/23 12:42 11/08/23 12:42 Labs: Abnormal Lab Results - Last 24 Hours (Table) 11/08/23 11/08/23 11/09/23 Range/Units 12:42 12:42 04:46 Lymphocytes # 0.8 L (1.0-4.8) k/uL Potassium 3.2 L (3.5-5.1) mmol/L Glucose 112 H (74-99) mg/dL Hemoglobin A1c 6.1 H (<=6.0) %
[2023-11-09 11:42] LABS: African American GFR (CKD) >90 (>60 ml/min/1.73 sqM); Anion Gap 12 mmol/L; Blood Urea Nitrogen 15 mg/dL (9-20); Calcium 9.3 mg/dL (8.4-10.2); Carbon Dioxide 26 mmol/L (22-30); Chloride 101 mmol/L (98-107); Glucose 108 mg/dL (74-99); Non-African American GFR(CKD) 89 (>60 ml/min/1.73 sqM); Potassium 3.5 mmol/L (3.5-5.1); Sodium 139 mmol/L (137-145)
--- NOTE | 2023-11-10 07:43 | P.CNNES ---
History of Present Illness Consult date: 11/09/23 Requesting physician: Nena Miller Reason for Consult: Vertebral artery occlusion History of Present Illness: Patient is a 68-year-old right-handed male with history of hypertension, X tobacco use, came to the hospital yesterday at 10:54 AM for episode of dizziness and nausea. Patient's was also present and both of them provided the history. Patient woke up yesterday at 8 AM and felt dizzy, lightheaded but den ies any vertigo. He also felt nauseous but did not vomit. He felt off balance, that if he did not watch his steps carefully, he could fall. He tried to sit, and then lay, and the symptoms persisted, and could not get comfortable. He went to the bathroom, had a bowel movement and felt better. It took about 1-1/2 hours to feel better. Patient's also mentioned that he had some headache for 5 days prior to arrival which was frontal, around his eyes and brow region, with no prior history of headaches. He does get some sniffing in the morning, and sneezes about 10-15 times and then feels fine. He may have some ALLERGIES. There was no associated slurred speech, facial droop, loss of vision, double vision or any focal numbness tingling or weakness. At present he feels 100% back to normal. Patient does complain of soreness in his neck and shoulder region for years. He has history of cervical fusion in 2010. He follows up with Dr. Brown. Vital signs arrival blood pressure 161/64, pulse is 72 temperature 98.7. Blood test shows normal CBC PT/PTT, normal CMP, influenza screen, RSV and weir virus PCR are negative. Chest x-ray showed COPD and chronic changes. No focal infi ltrate seen. CT head revealed no acute intracranial abnormality seen. EKG shows sinus rhythm. In the ED, patient was noted to have NIH stroke scale of 0. ED staff discussed case with neuro driller and broacher, and acne acute intervention was not needed. The neuro intervention recommended aspirin and Brilinta. Patient has history of hypertension but denies diabetes. Patient has smoked 1 pack per day since age 20 and quit smoking 2 years ago in May 2021. He has smoked for 45 years. He drinks alcohol very little. Does not use any marijuana. No previous history of strokes or TIA. Patient's home medications include Lipitor 80 mg, HCTZ 25 mg, metoprolol, aspirin 81 mg, amlodipine 2.5 mg.. ED staff discussed case with neuro intervention, recommended starting aspirin and Brilinta. Review of Systems Constitutional: Denies chills, Denies fever Eyes: denies blurred vision, denies diplopia, denies pain Ears: deny: decreased hearing, ear discharge Ears, nose, mouth and throat: Denies headache, Denies sore throat, Denies vertigo Cardiovascular: Reports lightheadedness, Denies chest pain, Denies shortness of breath Respiratory: Denies cough, Denies excessive sputum Gastrointestinal: Reports nausea, Denies abdominal pain, Denies diarrhea, Denies vomiting Genitourinary: Denies dysuria, Denies incontinence Musculoskeletal: Reports low back pain, Reports neck pain Integumentary: Denies pruritus, Denies rash Neurological: Reports as per HPI, Reports tremors (Right hand shake sometimes.) Psychiatric: Reports memory loss (For 6 months), Denies anxiety, Denies depression Hematologic/Lymphatic: Denies easy bleeding, Denies easy bruising Past Medical History Past Medical History: Coronary Artery Disease (CAD), GERD/Reflux, Hyperlipidemia, Hypertension, Osteoarthritis (OA), Sleep Apnea/CPAP/BIPAP Additional Past Medical History / Comment(s): chronic neck & shoulder pain. occ heart palpitations. Has not used CPAP in a while. cyst on the spine History of Any Multi-Drug Resistant Organisms: None Reported Past Surgical History: Appendectomy, Heart Catheterization, Hernia Repair, Joint Replacement, Orthopedic Surgery Additional Past Surgical History / Comment(s): Rt shoulder surgery with screw, cervical fusion., COLONOSCOPY, heart cath 06/21/21, right hip replacement, right great toe sx Past Anesthesia/Blood Transfusion Reactions: No Reported Reaction Additional Past Anesthesia/Blood Transfusion Reaction / Comment(s): no blood tx hx Past Psychological History: No Psychological Hx Reported Smoking Status: Former smoker Past Alcohol Use History: None Reported Additional Past Alcohol Use History / Comment(s): Started smoking small cigars in early 's; stopped 2003. 11/18 ppd. Past Drug Use History: None Reported - Past Family History Brother(s) Family Medical History: Cancer Additional Family Medical History / Comment(s): Kidney CA with mets. Medications and Allergies Home Medications Medication Instructions Recorded Confirmed Type Atorvastatin [Lipitor] 80 mg PO DAILY 06/21/21 11/08/23 History hydroCHLOROthiazide [Hydrodiuril] 25 mg PO DAILY 05/14/22 11/08/23 History Aspirin EC [Ecotrin Low Dose] 81 mg PO DAILY 11/08/23 11/08/23 History Loratadine 10 mg PO DAILY 11/08/23 11/08/23 History Metoprolol Tartrate [Lopressor] 37.5 mg PO DAILY 11/08/23 11/08/23 History amLODIPine [Norvasc] 2.5 mg PO DAILY 11/08/23 11/08/23 History Allergies Allergy/AdvReac Type Severity Reaction Status Date / Time Sulfa (Sulfonamide Allergy Severe Throat Verified 11/08/23 11:20 Antibiotics) Swelling, rash, difficulty breathing Physical Examination - Vital Signs Vital Signs: Vital Signs Temp Pulse Pulse Resp BP BP BP 11/09/23 08:02 11/09/23 07:00 97.4 F L 69 16 116/78 11/09/23 01:55 98.4 F 88 16 118/72 11/08/23 20:00 97.5 F L 71 16 142/76 11/08/23 18:00 73 18 133/73 11/08/23 13:15 144/70 135/69 Pulse Ox 11/09/23 08:02 97 11/09/23 07:00 95 11/09/23 01:55 100 11/08/23 20:00 98 11/08/23 18:00 97 11/08/23 13:15 Intake and Output 11/08/23 11/09/23 11/09/23 22:59 06:59 14:59 Other: # Voids 1 1 Weight 90.718 kg Patient is an elderly male, in no acute distress. Patient is alert awake oriented to time place and person. Speech and language functions are normal. Patient can name and repeat very well. No aphasia or dysarthria. Attention, concentration and fund of knowledge is adequate. On cranial nerve examination, pupils are equal, round and reacting to light, visual bolden are full on confrontation, with no neglect on double simultaneous stimulation. Extraocular muscles are intact with no nystagmus. Face is symmetric, tongue protrudes to the midline. Palatal elevation and sensation normal, hearing and shoulder shrug normal, facial sensation normal. On muscle strength testing, there is no pronator drift and the strength is normal in arms and legs distally and proximally. Deep tendon reflexes are symmetric 1-1+ all over and plantars downgoing bilaterally. Sensory to touch is equal with no neglect on double simultaneous stimulation. Cerebellar function showed no ataxia for qmtxnn-va-zogy testing. No dysdiadochokinesia. No ataxia for zqfd-[id number] testing on either side. Tone and bulk of muscles normal. Gait deferred.. On general examination, there is no carotid bruit or murmur, S1-S2 audible. Chest is clear on consultation. Abdomen is soft nontender. No organomegaly, bowel sounds present. Peripheral pulses are present. No peripheral edema. Results - Laboratory Findings CBC and BMP: 11/08/23 12:42 11/09/23 10:21 Abnormal Lab Findings: Abnormal Labs 11/08/23 11/08/23 11/09/23 12:42 12:42 04:46 Lymphocytes # 0.8 L Potassium 3.2 L Glucose 112 H Hemoglobin A1c 6.1 H 11/09/23 10:21 Lymphocytes # Potassium Glucose 108 H Hemoglobin A1c Assessment and Plan Assessment: * Transient episode of dizziness/lightheadedness with nausea, without any other lateralizing symptoms, that lasted for about 1-1/2 hours and resolves. Exact cause is uncertain. TIA is a possibility. Peripheral vascular dysfunction is also in the differential. 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 Rule out embolic source. * Hypertension * X tobacco use * Coronary artery disease * Hyperlipidemia * Sleep apnea * History of neck surgery * Chronic neck and shoulder pain Plan: * Patient undergoing stroke/TIA workup. 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 There is reconstitution of flow at the upper cervical left vertebral artery. Mild t o moderate atherosclerotic changes of the bilateral carotid bifurcation. 40% proximal left ICA stenosis and mild 25% proximal right ICA stenosis. * CTA of the head showed mild atherosclerotic calcification throughout the carotid siphons. No large vessel intracranial arterial occlusion, significant stenosis or aneurysm. * Fasting a.m. lipid panel with cholesterol 155, LDL 93, HDL 40 and triglyceri navarro 105. Continue Lipitor 80 mg daily. * Hemoglobin A1c 6.1 * Optimize control of blood pressure. Blood pressure overall well controlled. * Patient was taking aspirin 81 mg daily. Brilinta 90 mg twice a day has been initiated by neuro intervention, which will be continued.. * Neuro checks every 4 hours. * Telemetry monitoring so far showing sinus rhythm, with no other arrhythmia. * PT, OT, speech therapy * DVT prophylaxiLovenox 40 mg subcu daily. * Discussed with primary physician in detail. * Neurology will continue to follow. Thank you for the consult. Time with Patient: Greater than 30
[2023-11-10] MEDS: ATORVASTATIN 80 MG TAB PO SCH (08:46)
[2023-11-10] MEDS: LORATADINE 10 MG TAB PO SCH (08:46)
[2023-11-10] MEDS: ASPIRIN 81 MG PO SCH (08:46)
[2023-11-10] MEDS: ENOXAPARIN 40 MG/0.4 ML SYRINGE SQ SCH (08:46)
[2023-11-10] MEDS: TICAGRELOR 90 MG TAB PO SCH ×2 (08:46→20:43)
[2023-11-10] MEDS ORDERED: LORazepam 2 MG/ML INJ IV PRN (12:18)
--- NOTE | 2023-11-10 12:19 | P.PN ---
Subjective Progress Note Date: 11/10/23 68-year-old male with PMH of CAD, hypertension, dyslipidemia, GERD He presents the ED as he felt off balance this morning when he woke up. He also reported nausea but no vomiting. He has been dealing with a frontal headache over the past 3 days. He denies any slurred speech, confusion, facial droop or focal neurologic deficit. Symptoms have completely resolved. In the ED, he underwent extensive evaluation. BP 161/64, pulse 72, respiratory rate 18, 99% on room air, afebrile. CBC was unremarkable. Coagulation panel was unremarkable. CMP showed potassium of 3.2 and glucose of 112. Influenza, COVID-19, RSV negative. CT brain negative. CTA head and neck showed occlusion of the left vertebral artery, mild to moderate bilateral carotid stenosis. 11/09 Patient was seen and examined. No complaints. Unsteadiness resolved. Feeling back to baseline. A1c 6.1. Lipid panel T. Chol 155, LDL 93.8. 11/10 Patient was seen and examined. No complaints. Feeling well. Requesting something for anxiety during MRI. General: non toxic, no distress, appears at stated age Derm: warm, dry Head: atraumatic, normocephalic, symmetric Eyes: EOMI, no lid lag, anicteric sclera Cardiovascular: S1S2 reg, no murmur Lungs: CTA bilateral, no rhonchi, no rales , no accessory muscle use Ext: no gross muscle atrophy, no edema, no contractures Neuro: No FND. Psych: Alert, oriented, appropriate affect Based on my assessment of this patient, this patient meets a moderate complexity level of care. Patient has an acute diagnosis of vertebral artery occlusion that poses a threat to life or bodily function. Ataxia Vertebral artery occlusion: ASA 81 mg PO QD. Brilinta 90 mg PO BID. MRI brain. Echocardiogram. Telemetry monitoring. Advanced neurochecks. PT/OT/ST. Neurology consult. Pre-DM Hypokalemia CODE STATUS: FULL CODE DVT Prophylaxis: Lovenox SQ GI Prophylaxis: Protonix. Designated medical POA if patient is not able to make medical decisions for themselves: I have reviewed the following nursing consultant notes: I have reviewed the results of the following tests: I have ordered the following tests: Pending: MRI brain, Echo I have discussed the care of this patient with the following independent historian: I have independently interpreted the following test below: I have discussed the management of this patient with the following physician: Objective - Vital Signs Vital signs: Vital Signs Temp 97.5 F L 11/10/23 07:00 Pulse 73 11/10/23 07:00 Resp 18 11/10/23 07:00 BP 117/72 11/10/23 07:00 Pulse Ox 97 11/10/23 07:00 FiO2 Intake & Output 11/09/23 11/10/23 11/10/23 18:59 06:59 18:59 Intake Total 120 Balance 120 Intake: Oral 120 Other: Voiding Method Toilet # Voids 2 2 0 # Bowel Movements 0 - Labs CBC & Chem 7: 11/08/23 12:42 11/09/23 10:21
--- NOTE | 2023-11-10 17:38 | P.PN ---
Subjective Progress Note Date: 11/10/23 Patient is feeling fine. Offers no complaints. Laying comfortably in the bed, and undergoing echo. Objective - Vital Signs Vital signs: Vital Signs Temp 97.5 F L 11/10/23 07:00 Pulse 73 11/10/23 07:00 Resp 18 11/10/23 07:00 BP 117/72 11/10/23 07:00 Pulse Ox 97 11/10/23 07:00 FiO2 Intake & Output 11/09/23 11/10/23 11/10/23 18:59 06:59 18:59 Intake Total 120 Balance 120 Intake: Oral 120 Other: Voiding Method Toilet # Voids 2 2 0 # Bowel Movements 0 - Exam Nonfocal. - Labs CBC & Chem 7: 11/08/23 12:42 11/09/23 10:21 Assessment and Plan Assessment: * Transient episode of dizziness/lightheadedness with nausea, without any other lateralizing symptoms, that lasted for about 1-1/2 hours and resolves. Exact cause is uncertain. TIA is a possibility. Peripheral vascular dysfunction is also in the differential. 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 Rule out embolic source. * Hypertension * X tobacco use * Coronary artery disease * Hyperlipidemia * Sleep apnea * History of neck surgery * Chronic neck and shoulder pain Plan: * Patient undergoing stroke/TIA workup. * MRI of the brain without contrast, evaluate for acute CVA * 2-D echo completed, results pending. 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 There is reconstitution of flow at the upper cervical left vertebral artery. Mild to moderate atherosclerotic changes of the bilateral carotid bifurcation. 40% proximal left ICA stenosis and mild 25% proximal right ICA stenosis. * CTA of the head showed mild atherosclerotic calcification throughout the carotid siphons. No large vessel intracranial arterial occlusion, significant stenosis or aneurysm. * Fasting a.m. lipid panel with cholesterol 155, LDL 93, HDL 40 and triglycerides 105. Continue Lipitor 80 mg daily. * Hemoglobin A1c 6.1 * Optimize control of blood pressure. Blood pressure overall well controlled. * Patient was taking aspirin 81 mg daily. Brilinta 90 mg twice a day has been initiated by neuro intervention, which will be continued.. * Neuro checks every 4 hours. * Telemetry monitoring so far showing sinus rhythm, with no other arrhythmia. * PT, OT, speech therapy * DVT prophylaxis: Lovenox 40 mg subcu daily. * Neurologically clear, if the MRI and 2-D echo comes back normal. Patient to follow-up with his neurologist Dr. Brown in 1-2 weeks.
[2023-11-11] MEDS ORDERED: LORazepam 2 MG/ML INJ IV PRN (06:07)
[2023-11-11] MEDS: TICAGRELOR 90 MG TAB PO SCH (08:37)
[2023-11-11] MEDS: ATORVASTATIN 80 MG TAB PO SCH (08:37)
[2023-11-11] MEDS: LORATADINE 10 MG TAB PO SCH (08:37)
[2023-11-11] MEDS: ENOXAPARIN 40 MG/0.4 ML SYRINGE SQ SCH (08:37)
[2023-11-11] MEDS: ASPIRIN 81 MG PO SCH (08:37)
--- NOTE | 2023-11-11 10:46 | MR ---
EXAMINATION TYPE: MR brain wo con DATE OF EXAM: 11/11/2023 10:34 AM CLINICAL INDICATION:Male, 68 years old with history of vertebral artery occlusion, Headaches, dizzine ss. COMPARISON: 11/08/2023.. TECHNIQUE: Multi planar, multi sequence imaging was performed through the brain including: T1, T2, In version recovery, Diffusion weighted imaging, and gradient echo imaging. No gadolinium was given. FINDINGS: Remote injury to the left cerebellum. There is loss of the normal flow void within the left vertebral artery compatible with occlusion seen on prior CT. The mistry-white junctions, ventricular system, basal cisterns appear unremarkable. Scattered foci of high T2 signal intensity are seen within the periventricular white matter. Midline structures show n o abnormality. Diffusion-weighted imaging shows no evidence of restricted diffusion. The susceptibili ty weighted images do not reveal any evidence for micro-hemorrhage. The bone marrow signal is within normal limits. Paranasal sinuses and mastoid air cells: No significant paranasal sinus disease. Visualized orbits: Orbital contents are intact. IMPRESSION: 1. Loss of flow void within the left vertebral artery compatible with occlusion seen on CT. No eviden ce of intracranial mass or acute/subacute infarct. 2. Remote left cerebellar injury. 3. Nonspecific white matter changes, likely secondary to small vessel ischemic disease.
--- NOTE | 2023-11-11 12:59 | P.PN ---
Subjective Progress Note Date: 11/11/23 68-year-old male with PMH of CAD, hypertension, dyslipidemia, GERD He presents the ED as he felt off balance this morning when he woke up. He also reported nausea but no vomiting. He has been dealing with a frontal headache over the past 3 days. He denies any slurred speech, confusion, facial droop or focal neurologic deficit. Symptoms have completely resolved. In the ED, he underwent extensive evaluation. BP 161/64, pulse 72, respiratory rate 18, 99% on room air, afebrile. CBC was unremarkable. Coagulation panel was unremarkable. CMP showed potassium of 3.2 and glucose of 112. Influenza, COVID-19, RSV negative. CT brain negative. CTA head and neck showed occlusion of the left vertebral artery, mild to moderate bilateral carotid stenosis. 11/09 Patient was seen and examined. No complaints. Unsteadiness resolved. Feeling back to baseline. A1c 6.1. Lipid panel T. Chol 155, LDL 93.8. 11/10 Patient was seen and examined. No complaints. Feeling well. Requesting something for anxiety during MRI. 11/11 Patient was seen and examined. No complaints. MRI brain shows loss of flow within in the left vertebral artery compatible with occlusion seen on CT, remote left cerebellar injury. General: non toxic, no distress, appears at stated age Derm: warm, dry Head: atraumatic, normocephalic, symmetric Eyes: EOMI, no lid lag, anicteric sclera Cardiovascular: S1S2 reg, no murmur Lungs: CTA bilateral, no rhonchi, no rales , no accessory muscle use Ext: no gross muscle atrophy, no edema, no contractures Neuro: No FND. Psych: Alert, oriented, appropriate affect Based on my assessment of this patient, this patient meets a moderate complexity level of care. Patient has an acute diagnosis of vertebral artery occlusion that poses a threat to life or bodily function. Ataxia Vertebral artery occlusion: ASA 81 mg PO QD. Brilinta 90 mg PO BID. MRI brain as above. Echocardiogram pending. Telemetry monitoring. Advanced neurochecks. PT/OT/ST. Neurology consult. Pre-DM: Metformin 500 mg PO BID. Resolved: Hypokalemia CODE STATUS: FULL CODE DVT Prophylaxis: Lovenox SQ GI Prophylaxis: Protonix. Designated medical POA if patient is not able to make medical decisions for themselves: I have reviewed the following senior market intelligence consultant notes: I have reviewed the results of the following tests: I have ordered the following tests: Pending: Echo I have discussed the care of this patient with the following independent historian: I have independently interpreted the following test below: I have discussed the management of this patient with the following physician: Objective - Vital Signs Vital signs: Vital Signs Temp 98.0 F 11/11/23 07:00 Pulse 74 11/11/23 07:00 Resp 14 11/11/23 07:00 BP 136/78 11/11/23 07:00 Pulse Ox 98 11/11/23 07:00 FiO2 Intake & Output 11/10/23 11/11/23 11/11/23 18:59 06:59 18:59 Intake Total 600 240 Balance 600 240 Intake: Oral 600 240 Other: Voiding Method Toilet Toilet Toilet # Voids 1 1 - Labs CBC & Chem 7: 11/08/23 12:42 11/09/23 10:21
--- NOTE | 2023-11-11 13:20 | CA ---
Transthoracic Echo Report Name: Nadeem Mckee Age: 68 Gender: M : 1955 Exam Date: 11/10/2023 15:55 Exam Location: [facility] Ht (in): 69 Wt (lb): 200 Ordering Physician: Bola Obando MD Attending/Referring Phys: Weaving Machine Operator Diego Almanza Procedure CPT: Indications: Thrombus Cardiac Hx: Technical Quality: Fair Contrast 1: Total Dose (mL): Contrast 2: Total Dose (mL): MEASUREMENTS (Male / Female) Normal Values 2D ECHO LV Diastolic Diameter PLAX 4.0 cm 4.2 - 5.9 / 3.9 - 5.3 cm LV Systolic Diameter PLAX 2.4 cm IVS Diastolic Thickness 0.9 cm 0.6 - 1.0 / 0.6 - 0.9 cm LVPW Diastolic Thickness 1.0 cm 0.6 - 1.0 / 0.6 - 0.9 cm LV Relative Wall Thickness 0.5 RV Internal Dim ED PLAX 2.4 cm LVOT Diameter 2.1 cm Aortic Root Diameter 2.9 cm LA Systolic Diameter LX 2.1 cm 3.0 - 4.0 / 2.7 - 3.8 cm LV Diastolic Volume MOD BP 40.1 cm??? 67 - 155 / 56 - 104 cm??? LV Systolic Volume MOD BP 11.8 cm??? 22 - 58 / 19 - 49 cm??? LV Ejection Fraction MOD BP 70.6 % >= 55 % LV Cardiac Index MOD BP 999.4 cm???/min???m??? LV Diastolic Volume MOD 4C 51.8 cm??? LV Systolic Volume MOD 4C 17.1 cm??? LV Ejection Fraction MOD 4C 66.9 % LV Cardiac Index MOD 4C 1224.3 cm???/min???m??? LV Diastolic Length 4C 6.5 cm LV Systolic Length 4C 5.4 cm LV Diastolic Volume MOD 2C 30.3 cm??? LV Systolic Volume MOD 2C 7.9 cm??? LV Ejection Fraction MOD 2C 74.0 % LV Cardiac Index MOD 2C 790.7 cm???/min???m??? LV Diastolic Length 2C 6.7 cm LV Systolic Length 2C 5.6 cm LA Volume 26.3 cm??? 18 - 58 / 22 - 52 cm??? LA Volume Index 12.4 cm???/m??? 16 - 28 cm???/m??? DOPPLER AV Peak Velocity 123.7 cm/s AV Peak Gradient 6.1 mmHg LVOT Peak Velocity 122.6 cm/s LVOT Peak Gradient 6.0 mmHg LVOT Velocity Time Integral 23.7 cm LVOT Stroke Volume 85.8 cm??? LVOT Stroke Volume Index 41.6 ml/m??? LVOT Cardiac Index 3030.6 cm???/min???m??? AV Area Cont Eq pk 3.6 cm??? MV Peak Velocity 103.1 cm/s MV Peak Gradient 4.2 mmHg MV Mean Velocity 55.6 cm/s MV Mean Gradient 1.5 mmHg MV Velocity Time Integral 33.1 cm Mitral E Point Velocity 76.7 cm/s Mitral A Point Velocity 75.1 cm/s Mitral E to A Ratio 1.0 MV Deceleration Time 249.3 ms MV E' Velocity 5.6 cm/s Mitral E to MV E' Ratio 13.7 PV Peak Velocity 154.0 cm/s PV Peak Gradient 9.5 mmHg FINDINGS Left Ventricle Normal LV size and wall thickness. Left ventricular ejection fraction is estimated at 55-60 %. Right Ventricle Normal right ventricular size. Right Atrium Normal right atrial size. Left Atrium Normal left atrial size. Mitral Valve Structurally normal mitral valve. Trace MR. Aortic Valve Trileaflet aortic valve. No aortic valve stenosis or regurgitation. Tricuspid Valve Structurally normal tricuspid valve. Trace TR. Pulmonic Valve Pulmonic valve not well visualized. No pulmonic regurgitation. Pericardium Not well visualized. Aorta Normal size aortic root. CONCLUSIONS Left ventricular ejection fraction 55-60% Trace mitral regurgitation Trace tricuspid regurgitation No pericardial effusion Previewed by: Dr. Ron Kaiser DO (Electronically Signed) Final Date: 11 November 2023 13:19
[2023-11-11 15:25] VITALS: BP 137/71; PULSE 82; RESP 15; TEMP 97.7
--- NOTE | 2023-11-11 16:01 | P.DS ---
Providers Date of admission: 11/08/23 17:01 Expected date of discharge: 11/11/23 Attending physician: Mariel Serrano MD Consults: 11/08/23 15:53 Consult Physician Routine Consulting Provider: Re Saunders Consult Reason/Comments: vertebral artery occlusion Do you want consulting provider notified?: Already Contacted Primary care physician: Sg Godwin MD Hospital Course: 68-year-old male with PMH of CAD, hypertension, dyslipidemia, GERD He presents the ED as he felt off balance this morning when he woke up. He also reported nausea but no vomiting. He has been dealing with a frontal headache over the past 3 days. He denies any slurred speech, confusion, facial droop or focal neurologic deficit. Symptoms have completely resolved. In the ED, he underwent extensive evaluation. BP 161/64, pulse 72, respiratory rate 18, 99% on room air, afebrile. CBC was unremarkable. Coagulation panel was unremarkable. CMP showed potassium of 3.2 and glucose of 112. Influenza, COVID-19, RSV negative. CT brain negative. CTA head and neck showed occlusion of the left vertebral artery, mild to moderate bilateral carotid stenosis. 11/09 Patient was seen and examined. No complaints. Unsteadiness resolved. Feeling back to baseline. A1c 6.1. Lipid panel T. Chol 155, LDL 93.8. 11/10 Patient was seen and examined. No complaints. Feeling well. Requesting something for anxiety during MRI. 11/11 Patient was seen and examined. No complaints. MRI brain shows loss of flow within in the left vertebral artery compatible with occlusion seen on CT, remote left cerebellar injury. Echo shows EF 55-60% with trace MR/TR. Plans for discharge home with Brilinta. Pertinent studies as above. General: non toxic, no distress, appears at stated age Derm: warm, dry Head: atraumatic, normocephalic, symmetric Eyes: EOMI, no lid lag, anicteric sclera Cardiovascular: S1S2 reg, no murmur Lungs: CTA bilateral, no rhonchi, no rales , no accessory muscle use Ext: no gross muscle atrophy, no edema, no contractures Neuro: No FND. 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 Brilinta 90 mg PO BID. MRI brain as above. Echocardiogram as above. Outpatient Neurology follow up. Pre-DM: Metformin 500 mg PO BID. Hypertension: Restart Metoprolol, HCTZ, Amlodipine. Resolved: Hypokalemia This complex discharge took 35 minutes to complete. Patient Condition at Discharge: Stable Plan - Discharge Summary New Discharge Prescriptions: New Ticagrelor [Brilinta] 90 mg PO BID #60 tab metFORMIN HCL [Glucophage] 500 mg PO BID-W/MEALS #60 tab Continue Atorvastatin [Lipitor] 80 mg PO DAILY Metoprolol Tartrate [Lopressor] 37.5 mg PO DAILY Aspirin EC [Ecotrin Low Dose] 81 mg PO DAILY Loratadine 10 mg PO DAILY hydroCHLOROthiazide [Hydrodiuril] 25 mg PO DAILY amLODIPine [Norvasc] 2.5 mg PO DAILY Discharge Medication List Atorvastatin [Lipitor] 80 mg PO DAILY 06/21/21 [History] hydroCHLOROthiazide [Hydrodiuril] 25 mg PO DAILY 05/14/22 [History] Aspirin EC [Ecotrin Low Dose] 81 mg PO DAILY 11/08/23 [History] Loratadine 10 mg PO DAILY 11/08/23 [History] Metoprolol Tartrate [Lopressor] 37.5 mg PO DAILY 11/08/23 [History] amLODIPine [Norvasc] 2.5 mg PO DAILY 11/08/23 [History] Ticagrelor [Brilinta] 90 mg PO BID #60 tab 11/11/23 [Rx] metFORMIN HCL [Glucophage] 500 mg PO BID-W/MEALS #60 tab 11/11/23 [Rx] Follow up Appointment(s)/Referral(s): Sg Godwin MD [Primary Care Provider] - 1-2 days
[2023-11-11] MEDS ORDERED: metFORMIN 500 MG TAB PO SCH (17:30)
== END 2023-11-11 16:50 | disposition home or self-care (01) ==
LOC: EC 10:54 → 6NMEDSUR 17:01
PROVIDERS: ADMIT Internal Medicine; ATTEND Internal Medicine
DX: R42 Dizziness and giddiness (principal); I65.23 Occlusion and stenosis of bilateral carotid arteries; M54.50 Low back pain, unspecified; E86.1 Hypovolemia; E87.6 Hypokalemia; F17.210 Nicotine dependence, cigarettes, uncomplicated; D64.9 Anemia, unspecified; Z79.82 Long term (current) use of aspirin; Z79.84 Long term (current) use of oral hypoglycemic drugs; Z80.51 Family history of malignant neoplasm of kidney; Z96.641 Presence of right artificial hip joint; Z98.1 Arthrodesis status; Z79.02 Long term (current) use of antithrombotics/antiplatelets; Z79.899 Other long term (current) drug therapy; I10 Essential (primary) hypertension; G47.30 Sleep apnea, unspecified
CPT/HCPCS: 36415; 94760; 93005; 93306; 97161; 97165; 80061; 80053; 80048; 85025; 85610; 85730; 83036; 87636; 71046; 70496; 70450; 70498; 70551; G0378 ×4; J2060; J1650 ×3; Q9967

== ENCOUNTER → 2024-02-16 | Outpatient (CLI) | payer MEDICARE, OTHER ==
[2024-02-16 12:00] LABS: Basophils # (A) 0.06 X 10*3/uL (0.00-0.10); Eosinophils # (A) 0.17 X 10*3/uL (0.04-0.35); HCT 49.7 % (39.6-50.0); HGB 16.5 g/dL (13.0-17.0); MCH 30.2 pg (27.0-32.0); MCHC 33.2 g/dL (32.0-37.0); Mean Platelet Volume 9.7 FL (9.5-12.2); Monocytes # (A) 0.65 X 10*3/uL (0.20-1.00); Monocytes % (A) 11.4 %; NRBC Per 100 WBC 0 X 10*3/uL (0.00-0.01); Neutrophils # (A) 3.63 X 10*3/uL (1.80-7.70); Neutrophils % (A) 63.4 %; Platelet Count 179 X 10*3/uL (140-440); RBC 5.46 X 10*6/uL (4.40-5.60); RDW 12.7 % (11.5-14.5); WBC 5.72 X 10*3/uL (4.50-10.00)
[2024-02-16 12:21] LABS: Chol/HDL Ratio 4.53 Ratio; LDL Cholesterol,Calculated 106.8 mg/dL (0.0-131.0)
[2024-02-16 12:22] LABS: ALT 21 U/L (10-49); AST 23 U/L (14-35); Albumin 4.1 g/dL (3.8-4.9); Albumin/Globulin Ratio 1.46 Ratio (1.60-3.17); Alkaline Phosphatase 74 U/L (41-126); BUN/Creat Ratio 16.36 Ratio (12.00-20.00); Calcium 9.4 mg/dL (8.7-10.3); Chloride 102 mmol/L (96-109); Globulin 2.8 g/dL (1.6-3.3); Glucose 107 mg/dL (70-110); Potassium 3.3 mmol/L (3.5-5.5); Sodium 143 mmol/L (135-145); Total Bilirubin 0.6 mg/dL (0.3-1.2); Total Protein 6.9 g/dL (6.2-8.2)
== END | disposition home or self-care (01) ==
LOC: LABWHC1 08:08
PROVIDERS: ATTEND Internal Medicine
DX: I10 Essential (primary) hypertension (principal); R73.03 Prediabetes
CPT/HCPCS: 36415; 80053; 80061; 83036; 84443; 85025

== ENCOUNTER → 2024-09-16 | Outpatient (CLI) | payer MEDICARE, OTHER ==
[2024-09-16 15:36] LABS: Basophils # (A) 0.05 X 10*3/uL (0.00-0.10); Basophils % (A) 0.9 %; Eosinophils # (A) 0.12 X 10*3/uL (0.04-0.35); HCT 47.4 % (39.6-50.0); HGB 16.1 g/dL (13.0-17.0); Lymphocytes # (A) 0.96 X 10*3/uL (0.90-5.00); Lymphocytes % (A) 16.4 %; MCH 31.8 pg (27.0-32.0); MCV 93.5 FL (80.0-97.0); Mean Platelet Volume 10.1 FL (9.5-12.2); Monocytes # (A) 0.58 X 10*3/uL (0.20-1.00); Monocytes % (A) 9.9 %; NRBC Per 100 WBC 0 X 10*3/uL (0.00-0.01); Neutrophils # (A) 4.13 X 10*3/uL (1.80-7.70); Neutrophils % (A) 70.5 %; Platelet Count 168 X 10*3/uL (140-440); RBC 5.07 X 10*6/uL (4.40-5.60); RDW 12.8 % (11.5-14.5); WBC 5.86 X 10*3/uL (4.50-10.00)
[2024-09-16 16:16] LABS: ALT 23 U/L (10-49); AST 23 U/L (14-35); Albumin 4.1 g/dL (3.8-4.9); Albumin/Globulin Ratio 1.64 Ratio (1.60-3.17); Alkaline Phosphatase 71 U/L (41-126); BUN/Creat Ratio 19.33 Ratio (12.00-20.00); Blood Urea Nitrogen 17.4 mg/dL (9.0-27.0); Calcium 9.1 mg/dL (8.7-10.3); Carbon Dioxide 29.3 mmol/L (21.6-31.8); Chloride 102 mmol/L (96-109); Chol/HDL Ratio 4.04 Ratio; Globulin 2.5 g/dL (1.6-3.3); Glucose 98 mg/dL (70-110); LDL Cholesterol,Calculated 114.8 mg/dL (0.0-131.0); Magnesium 2.1 mg/dL (1.5-2.4); Potassium 3.6 mmol/L (3.5-5.5); Prostate Specific Antigen 3.73 ng/mL (0.000-4.500); Sodium 141 mmol/L (135-145); Total Bilirubin 0.7 mg/dL (0.3-1.2); Total Protein 6.6 g/dL (6.2-8.2)
== END | disposition home or self-care (01) ==
LOC: LABWHC1 08:35
PROVIDERS: ATTEND Internal Medicine
DX: Z12.5 Encounter for screening for malignant neoplasm of prostate (principal); I10 Essential (primary) hypertension; E78.5 Hyperlipidemia, unspecified; R73.03 Prediabetes
CPT/HCPCS: 36415; 80053; 80061; 83036; 83735; 84153; 84443; 85025

== ENCOUNTER → 2024-10-06 | Outpatient (CLI) | payer MEDICARE, OTHER ==
[2024-10-06 09:07] LABS: ALT 23 U/L (4-49); AST 25 U/L (17-59); African American GFR (CKD) >90 (>60 ml/min/1.73 sqM); Albumin 4.2 g/dL (3.5-5.0); Albumin/Globulin Ratio 1.2; Alkaline Phosphatase 68 U/L (38-126); Anion Gap 5 mmol/L; Blood Urea Nitrogen 19 mg/dL (9-20); Carbon Dioxide 31 mmol/L (22-30); Chloride 104 mmol/L (98-107); Globulin 3.4 g/dL; Glucose 104 mg/dL (74-99); Non-African American GFR(CKD) 81 (>60 ml/min/1.73 sqM); Sodium 140 mmol/L (137-145); Total Protein 7.6 g/dL (6.3-8.2)
--- NOTE | 2024-10-06 11:37 | CT ---
EXAMINATION TYPE: CT angio head neck CT DLP: 1581.40 mGycm, Automated exposure control for dose reduction was used. DATE OF EXAM: 10/06/2024 10:52 AM COMPARISON: CTA head and neck 11/08/2023, MR brain 11/11/2023, CT brain 11/08/2023. CLINICAL INDICATION:Male, 69 years old with history of I63.9 CEREBRAL INFARCTION, UNSPECIFIED; PHH, H x cerebral infarct TECHNIQUE: Axially acquired helical CT angiogram of the head and neck was obtained with contrast util izing 75 cc of Isovue-370 administered intravenously. Axial images are supplemented with 3D reconstru ctions which were post-processed at an independent workstation. NASCET criteria used. FINDINGS: CTA HEAD: No evidence of acute intracranial hemorrhage, mass effect, or midline shift. The ventricles, sulci, a nd cisterns are unremarkable. The visualized portions of the internal carotid arteries, middle cerebral arteries, anterior cerebral arteries, and posterior cerebral arteries are patent. The basilar and vertebral arteries are patent. Mild paranasal sinus disease involving the ethmoid sinuses and bilateral maxillary sinuses. CTA NECK: Right Carotid System: The common carotid artery and external carotid artery are patent. Mild to moderate atherosclerotic ca lcification involving the carotid bifurcation extending into the proximal internal carotid artery. Ap proximate 25% stenosis at the origin of the right internal carotid artery. Mild stenosis involving th e cavernous portion of the internal carotid artery secondary to calcified plaque. Left Carotid System: The common carotid artery and external carotid artery are patent. Moderate atherosclerotic plaque wayne ntified at the carotid bifurcation. Approximately 50% stenosis at the origin of the left internal car otid artery secondary to calcified plaque. Mild stenosis involving the cavernous portion of the inter nal carotid artery secondary to calcified plaque. Severe atherosclerotic change at the takeoff of the left vertebral artery with occlusion redemonstrat ed. There is reconstitution of the upper cervical left vertebral artery again at the level of C4. The right vertebral artery is dominant and patent. There is a three-vessel aortic arch. The origins of the great vessels are patent. Mild atheroscleroti c arch calcifications. No evidence of hemodynamically significant stenosis. Mild paraseptal emphysematous changes. There is food debris identified within the visualized portion of the mid esophagus. Postsurgical changes from anterior cervical fusion involving C6-C7. Multilevel degenerative disc disease. IMPRESSION: 1. No evidence of significant intracranial stenosis or aneurysm. 2. Redemonstration of occlusion of the origin of the left vertebral artery with reconstitution in th e upper cervical level at C4. Right vertebral artery is patent and dominant. 3. Approximately 50% stenosis at the origin of the left internal carotid artery secondary to calcifi ed plaque. 4. Approximately 25% stenosis at the origin of the right internal carotid artery secondary to calcif ied plaque. [facility], , 10/06/2024 11:35 AM
== END | disposition home or self-care (01) ==
LOC: RADCTMAIN 08:26
PROVIDERS: ATTEND Psychiatry & Neurology Vascular Neurology
DX: I63.9 Cerebral infarction, unspecified (principal); I65.23 Occlusion and stenosis of bilateral carotid arteries; Z86.73 Personal history of transient ischemic attack (TIA), and cerebral infarction without residual deficits
CPT/HCPCS: 80053; 70496; 70498; 36415; Q9967

== ENCOUNTER → 2024-10-15 | Outpatient (CLI) | payer MEDICARE, OTHER ==
--- NOTE | 2024-10-15 11:31 | CTL ---
EXAMINATION TYPE: CT Low Dose Lung DATE OF EXAM ORDERED: 10/15/2024 COMPARISON: 10/07/2022 CLINICAL INDICATION: Male, 69 years old with history of Z12.2 ENCNTR SCREEN FOR MALIGNANT NEOPLASM OF RESP; PHH, , Lung cancer screening, History of Smoking/tobacco use. TECHNIQUE: Low dose computed tomography scan was performed through the chest at 1 mm thick sections a nd reconstructed images in multiple planes at 1 mm and [address] DLP: mGycm CT CTDI: mGy Automated exposure control for dose reduction was used. CT DIAGNOSTIC QUALITY: Satisfactory FINDINGS: There are mild emphysematous changes within upper lobe predominance. There are stable scattered calcified granulomas. No suspicious lung mass or nodule is seen. There is no airspace consolidation or abnormal interstitial opacity. There is no pleural effusion or pneumothorax. The great vessels and chest are normal and there is no mediastinal, hilar or axillary adenopathy. Limited scanning through the upper abdomen reveals no gross abnormality. No focal osseous lesions are seen. IMPRESSION: 1. Lung rads category 2 benign findings. Continue routine screening yearly intervals. 2. Mild emphysematous changes. 3. No acute cardiopulmonary disease. [facility], , 10/15/2024 11:29 AM
== END | disposition home or self-care (01) ==
LOC: RADCTMAIN 10:43
PROVIDERS: ATTEND Internal Medicine
DX: Z12.2 Encounter for screening for malignant neoplasm of respiratory organs (principal); J43.9 Emphysema, unspecified; R91.1 Solitary pulmonary nodule; Z87.891 Personal history of nicotine dependence
CPT/HCPCS: 71271

== ENCOUNTER 2024-11-27 10:04 | Emergency (ER) | payer MEDICARE, OTHER ==
--- NOTE | 2024-11-27 11:18 | ED ---
General Adult HPI - General Chief complaint: Dizziness Stated complaint: Dizziness Time Seen by Provider: 11/27/24 10:10 Source: patient, RN notes reviewed, old records reviewed Mode of arrival: EMS Limitations: no limitations - History of Present Illness Initial comments: This is a 69-year-old male who presents to the emergency department complaining that he was watching a basketball game any felt a little nauseous was a little bit lightheaded and for a slight moment thought he might pass out. Patient states this is similar to the symptoms he had when he was diagnosed with a blocked vertebral artery however they were not quite as severe at this time. Patient states the symptoms last about 25 minutes and then they resolved. Patient denied any headache patient denies chest pain palpitations or difficulty breathing. Patient denies any shortness of breath. Patient has any recent fever chills or cough. Patient has any congestion or upper respiratory like symptoms. Patient currently states he has no symptoms whatsoever. - Related Data Home Medications Medication Instructions Recorded Confirmed Atorvastatin [Lipitor] 80 mg PO DAILY 06/21/21 11/08/23 hydroCHLOROthiazide [Hydrodiuril] 25 mg PO DAILY 05/14/22 11/08/23 Aspirin EC [Ecotrin Low Dose] 81 mg PO DAILY 11/08/23 11/08/23 Loratadine 10 mg PO DAILY 11/08/23 11/08/23 Metoprolol Tartrate [Lopressor] 37.5 mg PO DAILY 11/08/23 11/08/23 amLODIPine [Norvasc] 2.5 mg PO DAILY 11/08/23 11/08/23 Previous Rx's Medication Instructions Recorded Ticagrelor [Brilinta] 90 mg PO BID #60 tab 11/11/23 metFORMIN HCL [Glucophage] 500 mg PO BID-W/MEALS #60 tab 11/11/23 Allergies Allergy/AdvReac Type Severity Reaction Status Date / Time Sulfa (Sulfonamide Allergy Severe Throat Verified 11/27/24 10:17 Antibiotics) Swelling, rash, difficulty breathing Review of Systems ROS Statement: Those systems with pertinent positive or pertinent negative responses have been documented in the HPI. ROS Other: All systems not noted in ROS Statement are negative. Past Medical History Past Medical History: Coronary Artery Disease (CAD), GERD/Reflux, Hype rlipidemia, Hypertension, Osteoarthritis (OA), Sleep Apnea/CPAP/BIPAP Additional Past Medical History / Comment(s): chronic neck & shoulder pain. occ heart palpitations. Has not used CPAP in a while. 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 History of Any Multi-Drug Resistant Organisms: None Reported Past Surgical History: Appendectomy, Heart Catheterization, Hernia Repair, Joint Replacement, Orthopedic Surgery Additional Past Surgical History / Comment(s): Rt shoulder surgery with screw, cervical fusion., COLONOSCOPY, heart cath 06/21/21, right hip replacement, right great toe sx Past Anesthesia/Blood Transfusion Reactions: No Reported Reaction Additional Past Anesthesia/Blood Transfusion Reaction / Comment(s): no blood tx hx Past Psychological History: No Psychological Hx Reported Smoking Status: Former smoker Past Alcohol Use History: None Reported Past Drug Use History: None Reported - Past Family History Brother(s) Family Medical History: Cancer Additional Family Medical History / Comment(s): Kidney CA with mets. General Exam - General Exam Comments Initial Comments: GENERAL: Patient is well-developed and well-nourished. Patient is nontoxic and well- hydrated and is in no acute distress. ENT: Neck is soft and supple. No significant lymphadenopathy is noted. Oropharynx is clear. Moist mucous membranes. Neck has full range of motion without eliciting any pain. EYES: The sclera were anicteric and conjunctiva were pink and moist. Extraocular movements were intact and pupils were equal round and reactive to light. Eyelids were unremarkable. PULMONARY: Unlabored respirations. Good breath sounds bilaterally. No audible rales rhonchi or wheezing was noted. CARDIOVASCULAR: There is a regular rate and rhythm without any murmurs gallops or rubs. ABDOMEN: Nontender abdomen SKIN: Skin is clear with no lesions or rashes and otherwise unremarkable. NEUROLOGIC: Patient is alert and oriented x3. Cranial nerves II through XII are grossly intact. Motor and sensory are also intact. Normal speech, volume and content. Symmetrical smile. MUSCULOSKELETAL: Normal extremities with adequate strength and full range of motion. LYMPHATICS: No significant lymphadenopathy is noted PSYCHIATRIC: Normal psychiatric evaluation. Limitations: no limitations Course Vital Signs 11/27/24 11/27/24 10:06 12:00 Pulse Rate 73 68 Respiratory 18 16 Rate Blood Pressure 139/71 115/72 O2 Sat by Pulse 93 L 94 L Oximetry Medical Decision Making - Medical Decision Making EKG shows a sinus rhythm at 73 bpm VA 187 QRS 98 QT interval 352 QTc is 378. Patient's EKG shows no ST segment elevation or depression. Was pt. sent in by a medical professional or institution (GEMINI Morley, SCRAPER LOADER OPERATOR, urgent care, hospital, or intermediate...) When possible be specific @ -No Did you speak to anyone other than the patient for history (EMS, parent, family, police, friend...)? What history was obtained from this source @ -No Did you review nursing and triage notes (agree or disagree)? Why? @ -I reviewed and agree with nursing and triage notes Were old charts reviewed (outside hosp., previous admission, EMS record, old EKG, old radiological studies, urgent care reports/EKG's, intermediate records)? Report findings @ -No old charts were reviewed Differential Diagnosis? @ -Differential Dizziness: Benign paroxysmal positional Vertigo, Meniere's disease, otitis media, acoustic neuroma, vertebrobasilar insufficiency, cerebellar stroke, encephalitis, hypovolemic, arrhythmia, coronary artery syndrome, anemia, this is not meant to be an all-inclusive list EKG interpreted by me (3pts min.). @ -As above X-rays interpreted by me (1pt min.). @ -Chest x-ray shows no acute abnormality CT interpreted by me (1pt min.). @ -None done U/S interpreted by me (1pt. min.). @ -None done What testing was considered but not performed or refused? (CT, X-rays, U/S, labs)? Why? @ -None What meds were considered but not given or refused? Why? @ -None Did you discuss the management of the patient with other professionals (professionals i.e. GEMINI Morley, SCRAPER LOADER OPERATOR, lab, RT, psych nurse, social science professor, informatics pharmacist, teacher, crime prevention police officer, case management director)? Give summary @ -No Was smoking cessation discussed for >3mins.? @ -No Was critical care preformed (if so, how long)? @ -No Were there social determinants of health that impacted care today? How? (Homelessness, low income, unemployed, alcoholism, drug addiction, transportation, low edu. Level, literacy, decrease access to med. care, senior care, rehab)? @ -No Was there de-escalation of care discussed even if they declined (Discuss DNR or withdrawal of care, Hospice)? DNR status @ -No What co-morbidities impacted this encounter? (DM, HTN, Smoking, COPD, CAD, Cancer, CVA, ARF, Chemo, Hep., AIDS, mental health diagnosis, sleep apnea, morbid obesity)? @ -None Was patient admitted / discharged? Hospital course, mention meds given and route, prescriptions, significant lab abnormalities, going to OR and other pe rtinent info. @ -Patient was asymptomatic when I initially saw him and he remained asymptomatic throughout his ED stay. Lab work came back x-ray came back all within normal range. Patient felt good enough to go home and will follow-up with his neurologist. Undiagnosed new problem with uncertain prognosis? @ -No Drug Therapy requiring intensive monitoring for toxicity (Heparin, Nitro, Insulin, Cardizem)? @ -No Were any procedures done? @ -No Diagnosis/symptom? @ -Dizziness Acute, or Chronic, or Acute on Chronic? @ -Acute Uncomplicated (without systemic symptoms) or Complicated (systemic symptoms)? @ -Complicated Side effects of treatment? @ -No Exacerbation, Progression, or Severe Exacerbation? @ -No Poses a threat to life or bodily function? How? (Chest pain, [place], HI, pneumonia, PE, COPD, DKA, ARF, appy, cholecystitis, CVA, Diverticulitis, Homicidal, Suicidal, threat to staff... and all critical care pts) @ -No - Lab Data Result diagrams: 11/27/24 11:11 11/27/24 11:11 Lab Results 11/27/24 11/27/24 11/27/24 Range/Units 11:11 11:11 11:11 WBC 6.3 (3.8-10.6) k/uL RBC 5.04 (4.30-5.90) m/uL Hgb 16.2 (13.0-17.5) gm/dL Hct 47.0 (39.0-53.0) % MCV 93.3 (80.0-100.0) fL MCH 32.1 (25.0-35.0) pg MCHC 34.5 (31.0-37.0) g/dL RDW 13.2 (11.5-15.5) % Plt Count 208 (150-450) k/uL MPV 6.8 Neutrophils % 74 % Lymphocytes % 12 % Monocytes % 10 % Eosinophils % 1 % Basophils % 1 % Neutrophils # 4.6 (1.3-7.7) k/uL Lymphocytes # 0.8 L (1.0-4.8) k/uL Monocytes # 0.6 (0-1.0) k/uL Eosinophils # 0.1 (0-0.7) k/uL Basophils # 0.0 (0-0.2) k/uL PT 10.6 (10.0-12.5) sec INR 0.9 (<1.2) APTT 25.0 (22.0-30.0) sec Sodium 140 (137-145) mmol/L Potassium 3.8 (3.5-5.1) mmol/L Chloride 100 (98-107) mmol/L Carbon Dioxide 34 H (22-30) mmol/L Anion Gap 6 mmol/L BUN 19 (9-20) mg/dL Creatinine 0.93 (0.66-1.25) mg/dL Est GFR (CKD-EPI)AfAm >90 (>60 ml/min/1.73 sqM) Est GFR (CKD-EPI)NonAf 84 (>60 ml/min/1.73 sqM) Glucose 108 H (74-99) mg/dL Calcium 9.4 (8.4-10.2) mg/dL Magnesium 2.3 (1.6-2.3) mg/dL Total Bilirubin 0.6 (0.2-1.3) mg/dL AST 22 (17-59) U/L ALT 21 (4-49) U/L Alkaline Phosphatase 81 (38-126) U/L Troponin I (0.000-0.034) ng/mL Total Protein 6.9 (6.3-8.2) g/dL Albumin 3.9 (3.5-5.0) g/dL 11/27/24 Range/Units 11:11 WBC (3.8-10.6) k/uL RBC (4.30-5.90) m/uL Hgb (13.0-17.5) gm/dL Hct (39.0-53.0) % MCV (80.0-100.0) fL MCH (25.0-35.0) pg MCHC (31.0-37.0) g/dL RDW (11.5-15.5) % Plt Count (150-450) k/uL MPV Neutrophils % % Lymphocytes % % Monocytes % % Eosinophils % % Basophils % % Neutrophils # (1.3-7.7) k/uL Lymphocytes # (1.0-4.8) k/uL Monocytes # (0-1.0) k/uL Eosinophils # (0-0.7) k/uL Basophils # (0-0.2) k/uL PT (10.0-12.5) sec INR (<1.2) APTT (22.0-30.0) sec Sodium (137-145) mmol/L Potassium (3.5-5.1) mmol/L Chloride (98-107) mmol/L Carbon Dioxide (22-30) mmol/L Anion Gap mmol/L BUN (9-20) mg/dL Creatinine (0.66-1.25) mg/dL Est GFR (CKD-EPI)AfAm (>60 ml/min/1.73 sqM) Est GFR (CKD-EPI)NonAf (>60 ml/min/1.73 sqM) Glucose (74-99) mg/dL Calcium (8.4-10.2) mg/dL Magnesium (1.6-2.3) mg/dL Total Bilirubin (0.2-1.3) mg/dL AST (17-59) U/L ALT (4-49) U/L Alkaline Phosphatase (38-126) U/L Troponin I <0.012 (0.000-0.034) ng/mL Total Protein (6.3-8.2) g/dL Albumin (3.5-5.0) g/dL Disposition Clinical Impression: Dizziness Disposition: HOME SELF-CARE Condition: Good Instructions (If sedation given, give patient instructions): Dizziness (ED) Is patient prescribed a controlled substance at d/c from ED?: No Referrals: Sg Godwin DO [Primary Care Provider] - 1-2 days Time of Disposition: 12:51
[2024-11-27 11:26] LABS: Basophils % (A) 1 %; Eosinophils # (A) 0.1 k/uL (0-0.7); Eosinophils % (A) 1 %; HGB 16.2 gm/dL (13.0-17.5); Lymphocytes # (A) 0.8 k/uL (1.0-4.8); Lymphocytes % (A) 12 %; MCH 32.1 pg (25.0-35.0); MCHC 34.5 g/dL (31.0-37.0); MCV 93.3 fL (80.0-100.0); Mean Platelet Volume 6.8; Monocytes # (A) 0.6 k/uL (0-1.0); Monocytes % (A) 10 %; Neutrophils # (A) 4.6 k/uL (1.3-7.7); Neutrophils % (A) 74 %; Platelet Count 208 k/uL (150-450); RBC 5.04 m/uL (4.30-5.90); RDW 13.2 % (11.5-15.5); WBC 6.3 k/uL (3.8-10.6)
[2024-11-27 11:32] LABS: ALT 21 U/L (4-49); AST 22 U/L (17-59); African American GFR (CKD) >90 (>60 ml/min/1.73 sqM); Albumin 3.9 g/dL (3.5-5.0); Alkaline Phosphatase 81 U/L (38-126); Anion Gap 6 mmol/L; Blood Urea Nitrogen 19 mg/dL (9-20); Calcium 9.4 mg/dL (8.4-10.2); Carbon Dioxide 34 mmol/L (22-30); Chloride 100 mmol/L (98-107); Glucose 108 mg/dL (74-99); Magnesium 2.3 mg/dL (1.6-2.3); Non-African American GFR(CKD) 84 (>60 ml/min/1.73 sqM); Potassium 3.8 mmol/L (3.5-5.1); Sodium 140 mmol/L (137-145); Total Bilirubin 0.6 mg/dL (0.2-1.3); Total Protein 6.9 g/dL (6.3-8.2)
--- NOTE | 2024-11-27 11:36 | XR ---
EXAMINATION TYPE: XR chest 2V DATE OF EXAM: 11/27/2024 11:32 AM COMPARISON: 11/08/2023 CLINICAL INDICATION: Male, 69 years old with history of Chest Pain, TECHNIQUE: XR chest 2V view(s) obtained. FINDINGS: The heart size is normal. The pulmonary vasculature is normal. The lungs are clear. A right coracoclavicular screw is fractured at its proximal threads. IMPRESSION: 1. No acute pulmonary process. [facility], , 11/27/2024 11:33 AM
[2024-11-27 11:39] LABS: INR 0.9 (<1.2); Prothrombin Time 10.6 sec (10.0-12.5)
[2024-11-27 13:07] VITALS: BP 129/67; PULSE 71; RESP 18
== END 2024-11-27 13:06 | disposition home or self-care (01) ==
LOC: EC 10:04
DX: R42 Dizziness and giddiness (principal); Z87.891 Personal history of nicotine dependence; Z88.2 Allergy status to sulfonamides
CPT/HCPCS: 36415; 71046; 80053; 83735; 84484; 85025; 85610; 85730; 93005; 99285

== ENCOUNTER → 2025-04-01 | Outpatient (CLI) | payer MEDICARE, OTHER ==
--- NOTE | 2025-04-01 14:59 | MR ---
EXAMINATION TYPE: MR brain wo/w con DATE OF EXAM: 04/01/2025 COMPARISON: MRI brain November 11, 2023. CT brain October 06, 2024 HISTORY: Tremors, possible cognitive issues TECHNIQUE: Multiplanar, multisequence images of the brain and brainstem is performed without and with IV contras t, utilizing 9 mL intravenous Gadobutrol . FINDINGS: Diffusion weighted images demonstrate no evidence of a recent infarct or other diffusion ab normality. The ventricular system and cisternal spaces are normal in size and appearance. The brai n volume is age appropriate. There are tiny scattered foci of T2 hyperintensity seen throughout the w ana luisa matter bilaterally. Approximately 6-10 scattered lesions are seen. Lesions are nonspecific in ap pearance and distribution. Old infarct medial aspect left cerebellar hemisphere axial T2 images 8 and 9 is redemonstrated. Midline structures redemonstrate normal morphology. The craniocervical junction remains within tegan l limits. Post contrast images demonstrate no abnormal enhancement. The dural venous sinuses appear patent. Bilateral aphakia is now present. Mild to moderate mucosal thickening involving bilateral eth moid sinuses is seen. IMPRESSION: 1. Mild to minimal nonspecific white matter changes favoring products of chronic small vessel ischemi c changes redemonstrated. Small old left-sided cerebellar lacunar infarct redemonstrated. 2. [id number] bilateral chronic ethmoid sinus disease is noted. [facility], , 04/01/2025 2:57 PM
--- NOTE | 2025-04-01 15:04 | MR ---
MRI CERVICAL SPINE: CLINICAL HISTORY: Neck pain Neck pain TECHNIQUE: Multiplanar, multisequence imaging of the cervical spine is performed without IV contrast. COMPARISON: CTA neck October 06, 2024 FINDINGS: Sagittal images of the cervical spine show the craniocervical junction to remain within nor mal limits. The cervical and upper thoracic spinal cord is normal in caliber and signal. Persistent grade 1 retrolisthesis C3 on C4. Persistent artifact from anterior fusion plate and surgical changes C6-C7 level The vertebral body heights are normal above and below surgical levels. There is slight g rade 1 anterolisthesis T1 on T2. There is [id number] disc space narrowing at C3-C4 and C4-C5 le vels. The bone marrow signal intensity is within normal limits. Axial images at C2-C3 level show left-sided vertebral facet degenerative change causing moderate left -sided neural foraminal narrowing. Axial images at C3-C4 level shows spondylosis with broad-based right paracentral spur disc complex an d uncovertebral facet degenerative change greater on the right effacing right anterolateral thecal sa c, there is moderate left and severe right-sided neural foraminal narrowing. Axial images at C4-C5 level shows central disc protrusion mildly effaces the anterior thecal sac and causing mild bilateral neural foraminal narrowing. Axial images at C5-C6 level show right temporal vertebral facet degenerative change causing asymmetri c mild to moderate right-sided neural foraminal narrowing. Axial images at inferior C6 and C6-C7 levels show right paracentral bony projection efface the anteri or thecal sac, there is mild left greater than right bilateral neural foraminal narrowing due to hernando inal bony projections. Axial images at C7-T1 level appear within normal limits. IMPRESSION: Postsurgical change at the C6-C7 level is redemonstrated. Multilevel spondylolisthesis an d degenerative change of the cervical spine is seen as detailed above [facility], , 04/01/2025 3:02 PM
== END | disposition home or self-care (01) ==
LOC: RADMRIMAIN 13:19
PROVIDERS: ATTEND Internal Medicine
DX: J32.2 Chronic ethmoidal sinusitis (principal); R25.1 Tremor, unspecified; R90.82 White matter disease, unspecified; M43.12 Spondylolisthesis, cervical region; M47.812 Spondylosis without myelopathy or radiculopathy, cervical region; Z86.73 Personal history of transient ischemic attack (TIA), and cerebral infarction without residual deficits
CPT/HCPCS: 70553; 72141; A9585